=== PATIENT | female | born 1940 | race Caucasian/White ===

== ENCOUNTER 2017-03-17 14:54 | Observation (INO) | payer MEDICARE, SELFPAY ==
[2017-03-17] VITALS (7 sets, daily range): BP systolic 109–162; BP diastolic 54–92; PULSE 54–71; RESP 16–18; TEMP 36.7–36.9; O2SAT 97–100; BMI 26.6; BMI 27.6
--- NOTE | 2017-03-17 15:24 | EKG12_ITS ---
Test Reason : CP Blood Pressure : / mmHG Vent. Rate : 062 BPM Atrial Rate : 062 BPM P-R Int : 150 ms QRS Dur : 086 ms QT Int : 428 ms P-R-T Axes : 023 026 052 degrees QTc Int : 434 ms Normal sinus rhythm Normal ECG Confirmed by BAHVIN MONTAGUE, JANETTE ([id number]), editor trade journal SANTIAGO BARRIENTOS ([id number]) on 03/19/2017 2:21:44 PM Referred By: LY Confirmed By:JANETTE DELCID MD
--- NOTE | 2017-03-17 15:25 | CT_ITS ---
STUDY: CTA CHEST REASON FOR EXAM: Female, 76 years old. Chest pain RADIATION DOSAGE (If Supplied By Facility): CTDIvol = ( 8.98 ) mGy, DLP = ( 261.34 ) mGycm TECHNIQUE: The examination was performed with the intravenous administration of 75ML ml of Isovue 370 contrast material. Post-processing of the angiographic images was performed, with multiplanar reformation and 3D reconstruction. Individualized dose optimization techniques were used for this CT. COMPARISON: April 07, 2016 FINDINGS: Normal enhancement of the main pulmonary artery and right and left pulmonary arteries. Normal enhancement of the bilateral peripheral pulmonary arteries. There is no demonstrated pulmonary embolism. Atherosclerotic changes of the aorta without evidence for aneurysm. There is no demonstrated aortic dissection. Normal heart and pericardium. Normal mediastinum. Normal hilar regions. Normal visualized trachea and bronchi. The lungs are well expanded. Mild generalized interstitial thickening. There is a tiny noncalcified nodule in the right upper lobe measuring approximately 2 mm in size.. There is mild atelectasis within the dependent portion of the lungs bilaterally. Patchy airspace opacity is also seen in the left upper lobe Normal pleura. Normal chest wall structures. Dorsal spine demonstrates moderate spondylosis. Small hiatal hernia is present. Normal visualized upper abdomen. Previously noted pulmonary emboli have resolved CT/CTA Chest W/WO Contrast IMPRESSION: Mild diffuse interstitial thickening and atelectasis within the dependent portion of the lungs.. Subtle airspace opacity in the left upper lobe possibly subsegmental atelectasis No evidence for pulmonary embolus Electronically Signed: Serjio Watson MD at 17:13 EST , Service support ,
--- NOTE | 2017-03-17 15:26 | ED.VISSUMM ---
- ER Visit Summary Date of Service: 03/17/17 Chief Complaint: Chest pain History of Present Illness: The patient is a 76 F presenting with chest pain which started this morning. Pain is in the midsternal region. She states it is 5/10. She has associated shortness of breath. She states she has felt dizzy but has not had syncope. She has a history of a previous DVT/PE following hip surgery. She had an IVC filter placed which has since been removed. She is on Eliquis. She has history of hypertension, hypercholesterolemia. Physical Examination: Vitals are stable. Patient is afebrile. Alert no acute distress. HEENT exam is unremarkable. Neck is supple. Lungs are clear and equal bilaterally. Heart is regular rate and rhythm. Abdomen is soft nontender nondistended. Extremities mild symmetric pedal edema Skin is warm and dry. No focal neurologic deficit. Remainder of exam is unremarkable. Emergency Department Course and Treatment: Patient was given aspirin on arrival. EKG is sinus rhythm rate of 62 with no acute ischemic changes. CBC shows a hemoglobin 11.9, platelets 125 at her baseline. Chemistries show BUN 27. Troponin is less than 0.02. CTA chest shows no evidence of PE, atelectasis. Patient is resting comfortably in the emergency department. Due to her chest pain, discussed with Dr. Forrester for admission. Disposition: Admission Impression: Chest pain This note was generated with [employer] dictation software. It may contain incorrect words, spelling, and punctuation that were not noted in review of the chart prior to signing ED Disposition - Plan for ED Patient: Chief Complaint: Chest Pain Referrals: Radha Campbell MD [Primary Care Provider] -
[2017-03-17] MEDS: Aspirin 81 MG TAB.CHEW 324 MG PO (15:40)
[2017-03-17 16:21] LABS: Absolute Lymphocyte Count 1.12 X10^3/ul (0.83-4.51); Absolute Neutrophil Count 3.6 X10^3/uL (2.0-7.7); Basophil# 0.01 X10^3/uL; Basophil% 0.2 % (0-1); Eosinophil# 0.23 X10^3/uL; Eosinophils% 4.4 % (0-5); Hematocrit 37.9 % (37-47); Hemoglobin 11.9 g/dl (12.0-15.0); Lymphocyte # 1.12 X10^3/ul (4.0); Lymphocyte % 21.4 % (19-41); Mean Corp Hgb Conc 31.4 g/gl (32-36); Mean Corpuscular Hgb 30.7 pg (27.0-32.0); Mean Corpuscular Volume 97.7 fL (81-99); Mean Platelet Vol. 12.1 fl (6.2-12.0); Monocyte# 0.31 X10^3/uL; Monocyte% 5.9 % (0-10); Neutrophil # 3.56 X10^3/uL (2.7-7.7); Neutrophil % 68.1 % (47-70); Platelet Count 125 K/mm3 (150-450); RBC Distribution Width CV 14.9 % (11.6-14.6); RBC Distribution Width SD 52.8 fl (35.1-43.9); Red Blood Count 3.88 M/mm3 (4.2-5.4); White Blood Count 5.2 K/mm3 (4.4-11.0)
[2017-03-17 16:25] LABS: Anion Gap 8 (5-15); BUN 27 mg/dL (7-18); BUN/Creat Ratio 27.1 RATIO (10-20); Chloride 106 mmol/L (98-107); EST Glomerular Filtration Rate 57 mL/min (>60); Est Glom Filt Rate - Afr Amer 69 mL/min (>60); Estimated Creatinine Clearance 41.72 ml/min; Glucose 91 mg/dL (74-106); Potassium 4.3 mmol/L (3.5-5.1); Sodium Level 143 mmol/L (136-145)
[2017-03-17 16:36] LABS: POSITIVE COUNT NO; POSITIVE DIFFERENTIAL NO; POSITIVE MORPHOLOGY NO
--- NOTE | 2017-03-17 19:43 | ECHOD_ITS ---
Reason For Study: chest pain Procedure This was a 2D Doppler, Color Flow transthoracic echocardiogram. Exam performed in department. Left Ventricle Normal size and thickness. The estimated ejection fraction is 75 %. Stage 1 diastolic dysfunction. No regional wall motion abnormalities noted. Right Ventricle Normal size and thickness. Normal systolic function. Atria Normal left atrium. Normal right atrium. Normal atrial septum. Mitral Valve The mitral valve is structurally normal. No prolapse or stenosis seen. Tricuspid Valve Normal tricuspid valve. Trivial tricuspid valve insufficiency. Right ventricular systolic pressure estimated to be 27 mmHg. Aortic Valve Trisinus/trileaflet aortic valve. Pulmonic Valve Normal pulmonic valve. Great Vessels Normal aortic root. Normal arch. Normal inferior vena cava. Inferior vena cava collapse with sniff. Pericardium/Pleural No pericardial effusion. MMode/2D Measurements & Calculations LVIDd: 3.6 cm IVSd: 0.81 cm Ao root diam: 2.8 cm LVIDs: 2.0 cm LVPWd: 0.81 cm LA dimension: 4.6 cm RVDd: 2.8 cm FS: 42.9 % LAV(MOD-bp): 49.2 ml LA A4 area: 15.0 cm2 RA A4 area: 12.9 cm2 LAV(MOD-bp) Indexed: 27.0 ml/m2 LAV(MOD-sp2): 45.2 ml LAV(MOD-sp4): 43.8 ml Time Measurements MV dec time: 0.26 sec Doppler Measurements & Calculations MV E max brneden: 56.8 cm/sec Lat Peak E' Brenden: 6.8 cm/sec Med Peak E' Brenden: 3.9 cm/sec MV A max brenden: 82.5 cm/sec E/E' lat: 8.3 E/E' med: 14.4 MV E/A: 0.69 Ao V2 max: 123.1 cm/sec LV V1 max: 111.7 cm/sec PA V2 max: 113.7 cm/sec Ao max P.1 mmHg LV V1 max P.0 mmHg TR max brenden: 232.5 cm/sec TR max P.7 mmHg Interpretation Summary Normal size and thickness. The estimated ejection fraction is 75 %. Stage 1 diastolic dysfunction. Trivial tricuspid valve insufficiency. Right ventricular systolic pressure estimated to be 27 mmHg. Compared to echo report dated 04/08/2016, LV function has remained the same, RVSP has normalized from 63 mm hg to 27 mm Hg., Ordering Physician: Tarik Forrester Performed By: Ivette Sanchez RDCS, RVT
[2017-03-17] MEDS: 0.9% NaCl Peripheral Flush Adult/Peds IV (21:08)
[2017-03-17] MEDS: Atorvastatin Calcium 10 MG Tablet PO (21:09)
[2017-03-17] MEDS: APIXABAN 5 MG TABLET PO (21:09)
--- NOTE | 2017-03-17 22:33 | PCM.HP.STD ---
Problem List (1) Chest pain Status: Acute Qualifiers: Chest pain type: precordial pain Qualified Code(s): R07.2 - Precordial pain History of Present Illness Date of Admission: 03/17/17 Chief Complaint: Chest pain The patient is a 76 year old F who was seen in the emergency room at [facility] with chief complaint of chest pain which she describes as a heaviness which started this morning after she got up from sleep. Patient denied any radiation of the discomfort into her arms or up into her neck, she denies any nausea or diaphoresis. Patient also denied any shortness of breath. She states the chest discomfort went away after she reached the emergency room. Workup in the emergency room included an EKG showed normal sinus rhythm without evidence of ischemic changes, lab that was remarkable for a BUN of 27, and a CTA of her chest which showed areas of atelectasis but no evidence of pulmonary embolism. Physical examination was unremarkable. Patient was placed in observation status on PCU for chest pain, cardiac enzymes will be cycled, she will undergo an echocardiogram tomorrow as well as a nuclear stress test if her enzymes remain negative. 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) Chronic venous insufficiency (Chronic) Edema leg (Chronic) Leg swelling (Chronic) S/P IVC filter (Chronic) Status post total replacement of right hip (Chronic) Hypothyroidism (Chronic) Hyperlipidemia (Chronic) Hypertension (Chronic) Allergies azithromycin Allergy (Verified 06/05/16 14:18) Hives Penicillins [PCN] Allergy (Verified 06/05/16 14:18) Hives simvastatin [From Zocor] Adverse Reaction (Verified 06/05/16 14:18) leg cramps LEG CRAMPS Home Medications: Ambulatory Orders Medication Instructions Recorded Atenolol [Tenormin (beta marcelle)] 25 mg PO DAILY 01/17/16 Atorvastatin Calcium [Lipitor] 10 mg PO QHS 01/17/16 Levothyroxine [Synthroid] 37.5 tab PO SUSA 01/17/16 Levothyroxine [Synthroid] 75 mcg PO MOTUWETHFR 01/17/16 Apixaban [Eliquis] 5 mg PO BID 06/16/16 Surgical History: total hip arthroplasty - Right, - - Partial thyroidectomy. Psychiatric History: No pertinent psych hx PHYS ASST History: No pertinent PHYS ASST history Lives: Spouse/ Significant Other Smoking Status: Never smoker Tobacco Use: Non-smoker Alcohol: None Drugs: None - *Family History Maternal History Items: No pertinent history, - - The patient's father at the age of 82 with a history of cerebrovascular accident and venous disease. The patient's mother at the age of 78 with a history of myocardial infarction. Paternal History Items: No pertinent history Review of Systems Constitutional: Denies: Anorexia, Chills, Fever, Night Sweats, Malaise, Weakness, Weight Change, Fatigue Eyes: Denies: Blurred vision, Cataracts, Conjunctivae Inflammation, Double vision, Drainage HEENT: Denies: Difficulty Swallowing, Dysphasia, Ear Pain, Eye Pain, Hearing Changes, Nasal bleeding, Nasal Congestion, Post Nasal Drip Cardiovascular: Reports: Chest Pain, Heaviness. Denies: Claudication, Chest Pressure, Chest Tightness, Edema, Light Headedness, Orthopnea, Palpitations, Paroxysmal Noc. Dyspnea, Syncope Respiratory: Denies: Cough, Hemoptysis, Pleuritic Pain, Shortness of Breath, Shortness of breath at rest, Shortness of breath upon exertion, Sputum production, Wheezing Gastrointestinal: Denies: Abdominal Pain, Constipation, Diarrhea, Hematemesis, Hematochezia, Nausea, Melena, Vomiting Genitourinary: Denies: Dysuria, Frequency, Hematuria, Hesitancy, Incontinence, Nocturia, Urgency Gynecological: Denies: Breast symptoms Musculoskeletal: Denies: Back Pain, Foot Pain, Hand Pain, Joint Pain, Joint stiffness, Joint swelling, Joint Tenderness, Leg Pain Skin: Denies: Dryness, Pruritis, Rash Neurological: Denies: Blurred vision, Double vision, Slurred speech, Difficulty swallowing, Focal weakness, Headaches, Incoordination, Numbness, Tingling Psychiatric: Denies: Anxiety, Depression, Homicidal Ideations, Suicidal Ideations Endocrine: Denies: Change in Body Habitus, Heat/ Cold Intolerance, Polydipsia, Polyuria Hematologic/ Lymphatic: Denies: Adenopathy, Anemia, Easy Bruising, Easy Bleeding, Petechiae, Purpura VTE Information - Inpt Only VTE Present on Admission: No VTE Mechan Device Prophylaxis: None VTE Pharm Prophylaxis ordered?: No Reason prophylaxis not ordered:: Medical Contraindication - Patient on Eliquis Patient Problems: Active and Suspected Problems Chest pain (Acute) - Physical Exam General: Alert, Oriented x3, Cooperative, No apparent distress, Well developed, Well nourished HEENT: Atraumatic, PERRLA, EOMI, Normocephalic Oral: Moist Mucosa Neck: Supple, No JVD, Negative Carotid Bruits, No Nuchal Rigidity, Trachea Midline, Thyroid Normal Size and Texture Lungs: Clear to auscultation, Normal air movement, No rhonchi, No wheeze, No rales Cardiovascular: Regular rate, Regular Rhythm, Normal S1, Normal S2, No murmurs, No Ectopic Activity, PMI Normal, No rub noted, No Gallop Abdomen: Bowel Sounds Present, Soft, Non Tender, Non-Distended, No hernias noted Extremities: No clubbing, No cyanosis, No edema, Capillary Refill Less than 3 Seconds Skin: No rashes, No breakdown Musculoskeletal: No Tenderness to Palpation of Joints or Extremities Neurological: Cranial nerves II-XII grossly intact, Neuro grossly intact, Sensory exam intact to light touch and pain, Coordination normal Psych/Mental Status: Normal Affect, Appropriate, Alert and oriented to time, place, person, mood and affect Vital Signs Temp Pulse Resp BP Pulse Ox 98.0 F 60 16 109/54 L 97 03/17/17 19:27 03/17/17 20:15 03/17/17 19:27 03/17/17 19:27 03/17/17 19:27 Oxygen Delivery Method Room Air Weight: 75.296 kg Body Mass Index (BMI) 27.6 Laboratory Tests Past 24 Hrs 03/17/17 20:15 Troponin I < 0.02 Assessment/Plan Active and Suspected Problems Chest pain (Acute) #1 chest pain-etiology unclear-patient will be placed in observation status on PCU, enzymes will be cycled, patient will have an echocardiogram, she will undergo nuclear stress test of her enzymes remain negative. #2 past history of pulmonary embolism following right hip replacement-patient is still on Eliquis, this pulmonary embolism happened last year. #3 osteoarthritis #4 probable atelectasis on CTA #5 hypertension Code Visit OBSV E&M: 27174 Initial observation care L3
--- NOTE | 2017-03-17 22:41 | HP.PCM_ITS ---
Problem List (1) Chest pain Status: Acute Qualifiers: Chest pain type: precordial pain Qualified Code(s): R07.2 - Precordial pain History of Present Illness Date of Admission: 03/17/17 Chief Complaint: Chest pain The patient is a 76 year old F who was seen in the emergency room at [facility] with chief complaint of chest pain which she describes as a heaviness which started this morning after she got up from sleep. Patient denied any radiation of the discomfort into her arms or up into her neck, she denies any nausea or diaphoresis. Patient also denied any shortness of breath. She states the chest discomfort went away after she reached the emergency room. Workup in the emergency room included an EKG showed normal sinus rhythm without evidence of ischemic changes, lab that was remarkable for a BUN of 27, and a CTA of her chest which showed areas of atelectasis but no evidence of pulmonary embolism. Physical examination was unremarkable. Patient was placed in observation status on PCU for chest pain, cardiac enzymes will be cycled, she will undergo an echocardiogram tomorrow as well as a nuclear stress test if her enzymes remain negative. 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) Chronic venous insufficiency (Chronic) Edema leg (Chronic) Leg swelling (Chronic) S/P IVC filter (Chronic) Status post total replacement of right hip (Chronic) Hypothyroidism (Chronic) Hyperlipidemia (Chronic) Hypertension (Chronic) Allergies azithromycin Allergy (Verified 06/05/16 14:18) Hives Penicillins [PCN] Allergy (Verified 06/05/16 14:18) Hives simvastatin [From Zocor] Adverse Reaction (Verified 06/05/16 14:18) leg cramps LEG CRAMPS Home Medications: Ambulatory Orders Medication Instructions Recorded Atenolol [Tenormin (beta marcelle)] 25 mg PO DAILY 01/17/16 Atorvastatin Calcium [Lipitor] 10 mg PO QHS 01/17/16 Levothyroxine [Synthroid] 37.5 tab PO SUSA 01/17/16 Levothyroxine [Synthroid] 75 mcg PO MOTUWETHFR 01/17/16 Apixaban [Eliquis] 5 mg PO BID 06/16/16 Surgical History: total hip arthroplasty - Right, - - Partial thyroidectomy. 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 The patient's mother at the age of 78 with a history of myocardial infarction. Paternal History Items: No pertinent history Review of Systems Constitutional: Denies: Anorexia, Chills, Fever, Night Sweats, Malaise, Weakness , Weight Change, Fatigue Eyes: Denies: Blurred vision, Cataracts, Conjunctivae Inflammation, Double vision, Drainage HEENT: Denies: Difficulty Swallowing, Dysphasia, Ear Pain, Eye Pain, Hearing Changes, Nasal bleeding, Nasal Congestion, Post Nasal Drip Cardiovascular: Reports: Chest Pain, Heaviness. Denies: Claudication, Chest Pressure, Chest Tightness, Edema, Light Headedness, Orthopnea, Palpitations, Paroxysmal Noc. Dyspnea, Syncope Respiratory: Denies: Cough, Hemoptysis, Pleuritic Pain, Shortness of Breath, Shortness of breath at rest, Shortness of breath upon exertion, Sputum production, Wheezing Gastrointestinal: Denies: Abdominal Pain, Constipation, Diarrhea, Hematemesis, Hematochezia, Nausea, Melena, Vomiting Genitourinary: Denies: Dysuria, Frequency, Hematuria, Hesitancy, Incontinence, Nocturia, Urgency Gynecological: Denies: Breast symptoms Musculoskeletal: Denies: Back Pain, Foot Pain, Hand Pain, Joint Pain, Joint stiffness, Joint swelling, Joint Tenderness, Leg Pain Skin: Denies: Dryness, Pruritis, Rash Neurological: Denies: Blurred vision, Double vision, Slurred speech, Difficulty swallowing, Focal weakness, Headaches, Incoordination, Numbness, Tingling Psychiatric: Denies: Anxiety, Depression, Homicidal Ideations, Suicidal Ideations Endocrine: Denies: Change in Body Habitus, Heat/ Cold Intolerance, Polydipsia, Polyuria Hematologic/ Lymphatic: Denies: Adenopathy, Anemia, Easy Bruising, Easy Bleeding , Petechiae, Purpura VTE Information - Inpt Only VTE Present on Admission: No VTE Mechan Device Prophylaxis: None VTE Pharm Prophylaxis ordered?: No Reason prophylaxis not ordered:: Medical Contraindication - Patient on Eliquis Patient Problems: Active and Suspected Problems Chest pain (Acute) - Physical Exam General: Alert, Oriented x3, Cooperative, No apparent distress, Well developed, Well nourished HEENT: Atraumatic, PERRLA, EOMI, Normocephalic Oral: Moist Mucosa Neck: Supple, No JVD, Negative Carotid Bruits, No Nuchal Rigidity, Trachea Midline, Thyroid Normal Size and Texture Lungs: Clear to auscultation, Normal air movement, No rhonchi, No wheeze, No rales Cardiovascular: Regular rate, Regular Rhythm, Normal S1, Normal S2, No murmurs, No Ectopic Activity, PMI Normal, No rub noted, No Gallop Abdomen: Bowel Sounds Present, Soft, Non Tender, Non-Distended, No hernias noted Extremities: No clubbing, No cyanosis, No edema, Capillary Refill Less than 3 Seconds Skin: No rashes, No breakdown Musculoskeletal: No Tenderness to Palpation of Joints or Extremities Neurological: Cranial nerves II-XII grossly intact, Neuro grossly intact, Sensory exam intact to light touch and pain, Coordination normal Psych/Mental Status: Normal Affect, Appropriate, Alert and oriented to time, place, person, mood and affect Vital Signs Temp Pulse Resp BP Pulse Ox 98.0 F 60 16 109/54 L 97 03/17/17 19:27 03/17/17 20:15 03/17/17 19:27 03/17/17 19:27 03/17/17 19:27 Oxygen Delivery Method Room Air Weight: 75.296 kg Body Mass Index (BMI) 27.6 Laboratory Tests Past 24 Hrs 03/17/17 20:15 Troponin I < 0.02 Assessment/Plan Active and Suspected Problems Chest pain (Acute) #1 chest pain-etiology unclear-patient will be placed in observation status on PCU, enzymes will be cycled, patient will have an echocardiogram, she will undergo nuclear stress test of her enzymes remain negative. #2 past history of pulmonary embolism following right hip replacement-patient is still on Eliquis, this pulmonary embolism happened last year. #3 osteoarthritis #4 probable atelectasis on CTA #5 hypertension Code Visit OBSV E&M: 29041 Initial observation care L3
[2017-03-18 01:25] VITALS: O2SAT 94
[2017-03-18 01:29] VITALS: BP 106/50; PULSE 62; RESP 14; TEMP 36.6; O2SAT 94
[2017-03-18 03:00] VITALS: PULSE 61
[2017-03-18] MEDS: Levothyroxine 75 MCG Tablet PO (05:40)
[2017-03-18 05:52] LABS: Absolute Lymphocyte Count 1.14 X10^3/ul (0.83-4.51); Absolute Neutrophil Count 2.5 X10^3/uL (2.0-7.7); Basophil# 0.02 X10^3/uL; Basophil% 0.5 % (0-1); Eosinophil# 0.33 X10^3/uL; Eosinophils% 7.8 % (0-5); Hematocrit 35.1 % (37-47); Hemoglobin 11.2 g/dl (12.0-15.0); Lymphocyte # 1.14 X10^3/ul (4.0); Lymphocyte % 26.8 % (19-41); Mean Corp Hgb Conc 31.9 g/gl (32-36); Mean Corpuscular Volume 97.2 fL (81-99); Mean Platelet Vol. 11.9 fl (6.2-12.0); Monocyte# 0.31 X10^3/uL; Monocyte% 7.3 % (0-10); Neutrophil # 2.45 X10^3/uL (2.7-7.7); Neutrophil % 57.6 % (47-70); Platelet Count 124 K/mm3 (150-450); RBC Distribution Width CV 14.9 % (11.6-14.6); Red Blood Count 3.61 M/mm3 (4.2-5.4); White Blood Count 4.3 K/mm3 (4.4-11.0)
[2017-03-18 05:53] LABS: International Normalized Ratio 1.5; Partial Thromboplast Time 28.3 Seconds (24.1-36.2); Prothrombin Time (Protime)PT. 17.4 SECONDS (11.7-14.9)
[2017-03-18 05:55] VITALS: BP 116/52; PULSE 64; RESP 14; TEMP 36.7; O2SAT 94
--- NOTE | 2017-03-18 05:55 | EKG12_ITS ---
Test Reason : AM EKG Blood Pressure : / mmHG Vent. Rate : 063 BPM Atrial Rate : 063 BPM P-R Int : 158 ms QRS Dur : 086 ms QT Int : 436 ms P-R-T Axes : 064 045 061 degrees QTc Int : 446 ms Normal sinus rhythm Normal ECG Confirmed by BHAVIN MONTAGEU, JANETTE ([id number]), digital editor SANTIAGO BARRIENTOS ([id number] on 03/22/2017 1:56:59 PM Referred By: DR MOSES Confirmed By:JANETTE DELCID MD
[2017-03-18 06:02] LABS: POSITIVE COUNT NO; POSITIVE DIFFERENTIAL NO; POSITIVE MORPHOLOGY NO
[2017-03-18 06:09] LABS: Anion Gap 6 (5-15); BUN 26 mg/dL (7-18); BUN/Creat Ratio 27.9 RATIO (10-20); Calcium,Total 8.5 mg/dL (8.5-10.1); Chloride 109 mmol/L (98-107); Creatinine, Serum 0.93 mg/dL (0.55-1.02); EST Glomerular Filtration Rate 62 mL/min (>60); Est Glom Filt Rate - Afr Amer 75 mL/min (>60); Estimated Creatinine Clearance 44.86 ml/min; Glucose 86 mg/dL (74-106); Potassium 3.7 mmol/L (3.5-5.1); Sodium Level 144 mmol/L (136-145)
[2017-03-18 07:18] VITALS: PULSE 72
--- NOTE | 2017-03-18 09:49 | STRESSREP ---
Stress Test Report Date: 03/18/2017 Procedure: Pharmacologic stress nuclear imaging study Indications: Chest pain Consent: Per the patient Procedure: The patient underwent pharmacologic (Regadenoson) evaluation with a peak heart rate of 93 bpm (65% predicted maximal heart rate) with a peak blood pressure 122/70 mmHg. The baseline ECG demonstrated normal sinus rhythm. The peak pharmacologic ECG demonstrated no obvious ECG changes. There were no cardiac dysrhythmias pretest, during pharmacologic infusion, or recovery. There was no report of chest discomfort during pharmacologic infusion or recovery. The examination was discontinued secondary to completion of protocol. Impression: 1. Pharmacologic (Regadenoson) evaluation 2. Peak pharmacologic ECG with no obvious ECG changes 3. Nuclear images pending Myocardial perfusion imaging study: Technique: The patient was injected with 10.6 mCi of technetium 99m Cardiolite and subsequently rest SPECT Cardiolite nuclear imaging was obtained in the horizontal long, vertical long, and short axis views. The patient underwent pharmacologic (Regadenoson) evaluation with a peak heart rate of 93 bpm (65% predicted maximal heart rate) with a peak blood pressure 122/70 mmHg the patient was injected with 35.0 mCi of technetium 99m Cardiolite and subsequently stress SPECT Cardiolite nuclear imaging was obtained in the horizontal long, vertical long, and short axis views. A gated Cardiolite study at peak stress was obtained. Interpretation: Rest and stress SPECT Cardiolite nuclear imaging status post realignment, normalization, and attenuation correction, demonstrate the appearance of relative uniform tracer uptake and myocardial perfusion appearing within normal limits. There appears to be end systolic thickening and brightening. The gated Cardiolite study demonstrates myocardial thickening and inward wall motion. The reported LVEF is 73%. Impression: 1. Rest and stress SPECT current nuclear imaging demonstrate myocardial perfusion appearing within normal limits. 2. The gated Cardiolite study reports an LVEF of 73%. This note was generated with [employer] software. Every effort was made to ensure accuracy, however, computerized data analytics developer mistakes may persist.
--- NOTE | 2017-03-18 10:00 | STRESSREP_ITS ---
Stress Test Report Date: 03/18/2017 Procedure: Pharmacologic stress nuclear imaging study Indications: Chest pain Consent: Per the patient Procedure: The patient underwent pharmacologic (Regadenoson) evaluation with a peak heart rate of 93 bpm (65% predicted maximal heart rate) with a peak blood pressure 122 /70 mmHg. The baseline ECG demonstrated normal sinus rhythm. The peak pharmacologic ECG demonstrated no obvious ECG changes. There were no cardiac dysrhythmias pretest, during pharmacologic infusion, or recovery. There was no report of chest discomfort during pharmacologic infusion or recovery. The examination was discontinued secondary to completion of protocol. Impression: 1. Pharmacologic (Regadenoson) evaluation 2. Peak pharmacologic ECG with no obvious ECG changes 3. Nuclear images pending Myocardial perfusion imaging study: Technique: The patient was injected with 10.6 mCi of technetium 99m Cardiolite and subsequently rest SPECT Cardiolite nuclear imaging was obtained in the horizontal long, vertical long, and short axis views. The patient underwent pharmacologic (Regadenoson) evaluation with a peak heart rate of 93 bpm (65% predicted maximal heart rate) with a peak blood pressure 122/70 mmHg the patient was injected with 35.0 mCi of technetium 99m Cardiolite and subsequently stress SPECT Cardiolite nuclear imaging was obtained in the horizontal long, vertical long, and short axis views. A gated Cardiolite study at peak stress was obtained. Interpretation: Rest and stress SPECT Cardiolite nuclear imaging status post realignment, normalization, and attenuation correction, demonstrate the appearance of relative uniform tracer uptake and myocardial perfusion appearing within normal limits. There appears to be end systolic thickening and brightening. The gated Cardiolite study demonstrates myocardial thickening and inward wall motion. The reported LVEF is 73%. Impression: 1. Rest and stress SPECT current nuclear imaging demonstrate myocardial perfusion appearing within normal limits. 2. The gated Cardiolite study reports an LVEF of 73%. This note was generated with [employer] software. Every effort was made to ensure accuracy, however, computerized photo checker mistakes may persist.
[2017-03-18] MEDS: Atenolol 25 MG Tablet PO (10:05)
[2017-03-18] MEDS: APIXABAN 5 MG TABLET PO (10:05)
[2017-03-18 10:20] VITALS: BP 119/61; PULSE 63; RESP 16; TEMP 36.6; O2SAT 96
--- NOTE | 2017-03-18 10:45 | PCM.DC ---
- Discharge Diagnoses Current Active Problems: Current Active and Chronic Problems Chest pain (Acute) You will use the following diet at home:: Cardiac Your food should be the consistency of: Regular Your liquids should be the consistency of: Regular/Thin Discharge Activity: Return to Normal Activity Allergies/Adverse Reactions: Allergies azithromycin Allergy (Verified 06/05/16 14:18) Hives Penicillins [PCN] Allergy (Verified 06/05/16 14:18) Hives simvastatin [From Zocor] Adverse Reaction (Verified 06/05/16 14:18) leg cramps LEG CRAMPS Medications to take at Discharge Atenolol [Tenormin (beta marcelle)] 25 mg PO DAILY 01/17/16 Atorvastatin Calcium [Lipitor] 10 mg PO QHS 01/17/16 Levothyroxine [Synthroid] 37.5 tab PO SUSA 01/17/16 Levothyroxine [Synthroid] 75 mcg PO MOTUWETHFR 01/17/16 Apixaban [Eliquis] 5 mg PO BID 06/16/16 Primary Care Physician: Radha Campbell MD [Primary Care Provider] - Please follow up with your Primary Care Physician in: 1-2 weeks Proposed Discharge Date: 03/18/17
--- NOTE | 2017-03-18 13:29 | PCM.DC.SUM ---
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 Subtle airspace opacity in the left upper lobe possibly subsegmental atelectasis No evidence for pulmonary embolus Echocardiogram: Interpretation Summary Normal size and thickness. The estimated ejection fraction is 75 %. Stage 1 diastolic dysfunction. Trivial tricuspid valve insufficiency. Right ventricular systolic pressure estimated to be 27 mmHg. Compared to echo report dated 04/08/2016, LV function has remained the same, RVSP has normalized from 63 mm hg to 27 mm Hg., Operations: None Procedures: 2-D Echocardiogram, Stress test Summary of Care Provided: Physical exam on day of discharge: General: Resting comfortably NAD Psych: A/Ox3 normal affect HEENT: PEARRLA AT NC Neck: Supple NT CV: RRR no m/t/r/g/h Resp: CTA Abd: [id number] Soft NT no guarding or rigidity Ext: DP2+= no edema Skin: W/D normal turgor Lymph/Heme: No active bleeding or adenopathy Neuro: CN2-12 intact Hospital course: The patient is a 76 year old F who presented to the emergency room with chest discomfort described as a heaviness the morning prior to presenting to the hospital. She had a negative troponin and negative EKG and was admitted for chest pain rule out. She had a history of PE for which she had been on Eliquis. A CTA of the chest was done which did not reveal any acute PE. She was placed on telemetry, had troponin cycled, and underwent a stress test the following morning, as well as an echocardiogram. There were no acute findings. She was discharged home in stable condition, and her chest pain was felt to be musculoskeletal in origin. This patient was seen by Hari Galdamez PA-C under the supervision of Doctor Bharat. [] Discharge Diet: Low fat/ Low Cholesterol, 4000 mg Sodium Diet Discharge Activity: Return to Normal Activity Home Medications: Medications to take at Discharge Atenolol [Tenormin (beta marcelle)] 25 mg PO DAILY 01/17/16 Atorvastatin Calcium [Lipitor] 10 mg PO QHS 01/17/16 Levothyroxine [Synthroid] 37.5 tab PO SUSA 01/17/16 Levothyroxine [Synthroid] 75 mcg PO MOTUWETHFR 01/17/16 Apixaban [Eliquis] 5 mg PO BID 06/16/16 Primary Care Physician: Radha Campbell MD [Primary Care Provider] - Please follow up with your Primary Care Physician in: 1-2 weeks Disposition: Home Minutes spent on discharge:: 35 Patient Condition:: Stable Meaningful Use Info Meaningful Use Diagnoses (Choose all that apply): None applicable <Heidi Nicholson E - Last Filed: 03/18/17 14:14> Discharge Date and Diagnosis - Secondary Discharge Diagnosis Chronic Problems 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 Patient admitted because of chest pain/discomfort. Her cardiac workup was unremarkable. Her EKG was unremarkable for acute ischemic changes. Her troponin was negative ?3. she had a history of PE and she has been on Eliquis. CTA chest done and revealed no evidence of acute PE. She underwent nuclear stress test that was unremarkable for acute distress induced myocardial ischemia. Acute coronary syndrome ruled out. 2D echocardiogram showed ejection fraction of 75%, stage I diastolic dysfunction. This pain attributed to musculoskeletal pain. Patient discharged home, discharged on her chronic home medication without any changes including Eliquis, recommended follow-up with PCP in 2 weeks. - Physical Exam General: Alert, Oriented x3, Cooperative, No apparent distress. HEENT: Atraumatic, PERRLA, EOMI. Neck: Supple, No JVD, Negative Carotid Bruits, Trachea Midline, Thyroid Normal. Lungs: Clear to auscultation, Normal air movement, No rhonchi, No wheeze, No rales. Cardiovascular: Regular rate, Regular Rhythm, Normal S1, Normal S2, PMI Normal. Abdomen: Bowel Sounds Present, Soft, Non Tender, Non-Distended, No Hepato-splenomegaly. Extremities: No clubbing, No cyanosis, No edema Skin: No rashes, No breakdown Neurological: Neuro grossly intact Vital Signs are stable. . Minutes spent on discharge:: 25 Code Visit OBSV E&M: 26867 Observation care discharge
--- NOTE | 2017-03-18 13:34 | DS.PCM_ITS ---
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 Subtle airspace opacity in the left upper lobe possibly subsegmental atelectasis No evidence for pulmonary embolus Echocardiogram: Interpretation Summary Normal size and thickness. The estimated ejection fraction is 75 %. Stage 1 diastolic dysfunction. Trivial tricuspid valve insufficiency. Right ventricular systolic pressure estimated to be 27 mmHg. Compared to echo report dated 04/08/2016, LV function has remained the same, RVSP has normalized from 63 mm hg to 27 mm Hg., Operations: None Procedures: 2-D Echocardiogram, Stress test Summary of Care Provided: Physical exam on day of discharge: General: Resting comfortably NAD Psych: A/Ox3 normal affect HEENT: PEARRLA AT NC Neck: Supple NT CV: RRR no m/t/r/g/h Resp: CTA Abd: [id number] Soft NT no guarding or rigidity Ext: DP2+= no edema Skin: W/D normal turgor Lymph/Heme: No active bleeding or adenopathy Neuro: CN2-12 intact Hospital course: The patient is a 76 year old F who presented to the emergency room with chest discomfort described as a heaviness the morning prior to presenting to the hospital. She had a negative troponin and negative EKG and was admitted for chest pain rule out. She had a history of PE for which she had been on Eliquis. A CTA of the chest was done which did not reveal any acute PE. She was placed on telemetry, had troponin cycled, and underwent a stress test the following morning, as well as an echocardiogram. There were no acute findings. She was discharged home in stable condition, and her chest pain was felt to be musculoskeletal in origin. This patient was seen by Hari Galdamez PA-C under the supervision of Doctor Bharat. [] Discharge Diet: Low fat/ Low Cholesterol, 4000 mg Sodium Diet Discharge Activity: Return to Normal Activity Home Medications: Medications to take at Discharge Atenolol [Tenormin (beta marcelle)] 25 mg PO DAILY 01/17/16 Atorvastatin Calcium [Lipitor] 10 mg PO QHS 01/17/16 Levothyroxine [Synthroid] 37.5 tab PO SUSA 01/17/16 Levothyroxine [Synthroid] 75 mcg PO MOTUWETHFR 01/17/16 Apixaban [Eliquis] 5 mg PO BID 06/16/16 Primary Care Physician: Radha Campbell MD [Primary Care Provider] - Please follow up with your Primary Care Physician in: 1-2 weeks Disposition: Home Minutes spent on discharge:: 35 Patient Condition:: Stable Meaningful Use Info Meaningful Use Diagnoses (Choose all that apply): None applicable <Heidi Nicholson E - Last Filed: 03/18/17 14:14> Discharge Date and Diagnosis - Secondary Discharge Diagnosis Chronic Problems 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 Patient admitted because of chest pain/ discomfort. Her cardiac workup was unremarkable. Her EKG was unremarkable for acute ischemic changes. Her troponin was negative ?3. she had a history of PE and she has been on Eliquis. CTA chest done and revealed no evidence of acute PE. She underwent nuclear stress test that was unremarkable for acute distress induced myocardial ischemia. Acute coronary syndrome ruled out. 2D echocardiogram showed ejection fraction of 75%, stage I diastolic dysfunction. This pain attributed to musculoskeletal pain. Patient discharged home, discharged on her chronic home medication without any changes including Eliquis , recommended follow-up with PCP in 2 weeks. - Physical Exam General: Alert, Oriented x3, Cooperative, No apparent distress. HEENT: Atraumatic, PERRLA, EOMI. Neck: Supple, No JVD, Negative Carotid Bruits, Trachea Midline, Thyroid Normal. Lungs: Clear to auscultation, Normal air movement, No rhonchi, No wheeze, No rales. Cardiovascular: Regular rate, Regular Rhythm, Normal S1, Normal S2, PMI Normal. Abdomen: Bowel Sounds Present, Soft, Non Tender, Non-Distended, No Hepato- splenomegaly. Extremities: No clubbing, No cyanosis, No edema Skin: No rashes, No breakdown Neurological: Neuro grossly intact Vital Signs are stable. . Minutes spent on discharge:: 25 Code Visit OBSV E&M: 56916 Observation care discharge
== END 2017-03-18 10:46 | disposition home or self-care (01) ==
LOC: ED 17:07 → PCU 18:44
PROVIDERS: Admitting Provider Internal Medicine; Emergency Provider Emergency Medicine; Family Provider Internal Medicine; PCP Internal Medicine; Visit Provider Hospitalist
DX: R07.2 Precordial pain (principal); R06.02 Shortness of breath; R42 Dizziness and giddiness; I10 Essential (primary) hypertension; E03.9 Hypothyroidism, unspecified; E78.5 Hyperlipidemia, unspecified; M19.90 Unspecified osteoarthritis, unspecified site; I83.12 Varicose veins of left lower extremity with inflammation; I83.11 Varicose veins of right lower extremity with inflammation; Z79.899 Other long term (current) drug therapy; Z79.01 Long term (current) use of anticoagulants; Z86.711 Personal history of pulmonary embolism
CPT/HCPCS: 36415; 71275; 78452; 80048; 84484; 85025; 85610; 85730; 93005; 93017; 93306; 99218; 99284; A9500; Q9967; A4216; G0378; J2785

== ENCOUNTER → 2019-07-28 | Outpatient (CLI) | payer MEDICARE, SELFPAY ==
[2017-03-17 19:13] VITALS: BMI 27.6
--- NOTE | 2019-07-28 15:49 | VDLE_ITS ---
Reason For Study: Pain LLE RIGHT LEFT CFV is compressible, spontaneous, phasic, GSV is normal. competent and demonstrates normal CFV is compressible, spontaneous, phasic, augmentation. competent, and demonstrates normal Procedure augmentation. Exam performed in department. FV is compressible, spontaneous, phasic, A preliminary report was called and/or faxed competent and demonstrates normal to [place]. augmentation. POP V is compressible, spontaneous, phasic, competent and demonstrates normal augmentation. T/P Trunk is compressible. PTV is compressible. LT PerV is compressible. Interpretation Summary Deep veins of the left lower extremity are patent and compressible segmentally. There is no evidence of left lower extremity deep vein thrombosis. Valvular competence appears intact within the proximal deep venous system on the left . The left great saphenous vein appears patent and compressible segmentally. Ordering Physician: Antonio Justin Referring Physician: Radha Campbell Performed By: Angeles Villatoro RVT
== END | disposition home or self-care (01) ==
LOC: CVS 15:46
PROVIDERS: PCP Internal Medicine; Referring Provider Physician Assistant Surgical; Visit Provider Physician Assistant Surgical
DX: M79.662 Pain in left lower leg (principal)
CPT/HCPCS: 93971

== ENCOUNTER 2020-03-01 09:15 | Outpatient (RCR) | payer MEDICARE, SELFPAY ==
[2017-03-17 19:13] VITALS: BMI 27.6
== END 2020-03-01 23:59 ==
LOC: IMMUN 09:15
PROVIDERS: PCP Internal Medicine; Visit Provider Family Medicine
DX: Z23 Encounter for immunization (principal)
CPT/HCPCS: 0011A; 0012A

== ENCOUNTER → 2020-08-26 15:46 | Outpatient (CLI) | payer MEDICARE, SELFPAY ==
[2020-08-26 14:55] VITALS: BMI 25.0
[2020-08-26 16:59] LABS: Absolute Lymphocyte Count 1.02 X10^3/uL (0.83-4.51); Absolute Neutrophil Count 3.5 X10^3/uL (2.0-7.7); Basophil# 0.03 X10^3/uL; Basophil% 0.6 % (0-1); Eosinophil# 0.16 X10^3/uL; Hematocrit 32.5 % (37-47); Hemoglobin 9.4 g/dL (12.0-15.0); Lymphocyte # 1.02 X10^3/ul (0.83-4.51); Lymphocyte % 19.4 % (19-41); Mean Corp Hgb Conc 28.9 g/dL (32-36); Mean Corpuscular Hgb 25.9 pg (27.0-32.0); Mean Corpuscular Volume 89.5 fL (81-99); Mean Platelet Vol. 10.3 fl (6.2-12.0); Monocyte# 0.59 X10^3/uL; Monocyte% 11.2 % (0-10); NRBC Flagged by Analyzer 0 % (0-5); Neutrophil # 3.45 X10^3/uL (2.7-7.7); Neutrophil % 65.6 % (47-70); Platelet Count 334 K/mm3 (150-450); RBC Distribution Width CV 17.2 % (11.6-14.6); RBC Distribution Width SD 56.5 fl (35.1-43.9); Red Blood Count 3.63 M/mm3 (4.2-5.4); White Blood Count 5.3 K/mm3 (4.4-11.0)
[2020-08-26 17:20] LABS: ALB/GLOB Ratio 0.6 RATIO (0.9-2.4); AST(SGOT) 12 U/L (15-37); Alanine Aminotransfer ALT/SGPT 15 U/L (13-56); Albumin, Serum 2.8 g/dL (3.2-5.0); Alkaline Phosphatase 119 U/L (45-117); Anion Gap 5 (5-15); BUN 26 mg/dL (7-18); Calcium,Total 8.9 mg/dL (8.5-10.1); Chloride 102 mmol/L (98-107); Cholesterol 108 mg/dL (200); Creatinine, Serum 0.79 mg/dL (0.55-1.02); EST Glomerular Filtration Rate 74 mL/min (>60); Est Glom Filt Rate - Afr Amer 90 mL/min (>60); Globulin 4.6 g/dL (2.2-4.2); Glucose 85 mg/dL (74-106); High Density Lipoprotein 47 mg/dL; Potassium 4.2 mmol/L (3.5-5.1); Protein, Total 7.4 g/dL (6.4-8.2); Sodium Level 139 mmol/L (136-145); Thyroid Stim Hormone (TSH) 1.76 uIU/mL (0.358-3.74); Triglycerides 75 mg/dL; Very Low Density Lipoprotein 15 mg/dL (5-40)
== END ==
PROVIDERS: PCP Internal Medicine; Visit Provider Internal Medicine
DX: D64.9 Anemia, unspecified (principal); I10 Essential (primary) hypertension; E78.5 Hyperlipidemia, unspecified
CPT/HCPCS: 36415; 80053; 80061; 84443; 85025

== ENCOUNTER → 2020-08-30 10:42 | Outpatient (CLI) | payer MEDICARE, SELFPAY ==
[2020-08-26 14:55] VITALS: BMI 25.0
--- NOTE | 2020-08-30 10:44 | RAD_ITS ---
STUDY: X-RAY - LEFT KNEE REASON FOR EXAM: Female, 80 years old. Left knee pain. TECHNIQUE: 4 view(s) of the knee. COMPARISON: None. FINDINGS: Osteopenia. Normal visualized distal femur. Normal visualized proximal tibia and fibula. Normal proximal tibiofibular articulation. Moderate arthrosis of the medial, lateral and patellofemoral compartments with osteophyte formation. Lateral tilt and subluxation of the patella sunrise view. The soft tissue structures are unremarkable. RAD/Knee 4 or More Views IMPRESSION: Osteopenia with tricompartmental arthrosis with osteophyte formation. No acute abnormality, erosive changes or periostitis. Electronically Signed: Zhang Ritchie MD at 12:04 EDT , Service support ,
--- NOTE | 2020-08-30 10:50 | RAD_ITS ---
STUDY: X-RAY - LEFT SHOULDER REASON FOR EXAM: Female, 80 years old. Left shoulder pain. TECHNIQUE: 4 view(s) of the shoulder. COMPARISON: None. FINDINGS: Generalized osteopenia. Moderate arthrosis of the glenohumeral joint with osteophyte formation. Mild arthrosis of the AC joint. Normal acromioclavicular joint. Normal acromion. Osteopenia of the humeral head with sclerosis at the greater tuberosity. The soft tissue structures are unremarkable. Normal visualized pulmonary apex. RAD/Shoulder min 2 Views IMPRESSION: Osteopenia with moderate arthrosis of the glenohumeral joint and mild arthrosis of the AC joint. Osteopenia and sclerotic changes of the humeral head. No acute abnormality, erosive changes or periostitis. Electronically Signed: Zhang Ritchie MD at 12:03 EDT , Service support ,
== END ==
PROVIDERS: PCP Internal Medicine; Referring Provider Internal Medicine; Visit Provider Internal Medicine
DX: M25.512 Pain in left shoulder (principal); M25.562 Pain in left knee
CPT/HCPCS: 73030; 73564

== ENCOUNTER 2020-10-17 08:03 | Outpatient (RCR) | payer MEDICARE, SELFPAY | END 2020-10-17 08:04 | disposition home or self-care (01) | LOC: PT 08:03 | PROVIDERS: PCP Internal Medicine; Visit Provider Orthopaedic Surgery | DX: R69 Illness, unspecified (principal) ==

== ENCOUNTER → 2020-10-28 15:39 | Outpatient (CLI) | payer MEDICARE, SELFPAY ==
[2020-10-28 16:41] LABS: Absolute Lymphocyte Count 1.11 X10^3/uL (0.83-4.51); Absolute Neutrophil Count 3.2 X10^3/uL (2.0-7.7); Basophil# 0.02 X10^3/uL; Basophil% 0.4 % (0-1); Eosinophil# 0.24 X10^3/uL; Eosinophils% 4.7 % (0-5); Hematocrit 32.6 % (37-47); Hemoglobin 9.5 g/dL (12.0-15.0); Lymphocyte # 1.11 X10^3/ul (0.83-4.51); Lymphocyte % 21.6 % (19-41); Mean Corp Hgb Conc 29.1 g/dL (32-36); Mean Corpuscular Hgb 27.4 pg (27.0-32.0); Mean Corpuscular Volume 93.9 fL (81-99); Mean Platelet Vol. 10.4 fl (6.2-12.0); Monocyte# 0.57 X10^3/uL; Monocyte% 11.1 % (0-10); NRBC Flagged by Analyzer 0 % (0-5); Neutrophil # 3.18 X10^3/uL (2.7-7.7); Platelet Count 254 K/mm3 (150-450); RBC Distribution Width CV 18.7 % (11.6-14.6); RBC Distribution Width SD 64.1 fl (35.1-43.9); Red Blood Count 3.47 M/mm3 (4.2-5.4); White Blood Count 5.1 K/mm3 (4.4-11.0)
[2020-10-28 17:03] LABS: Ferritin 694 ng/mL (8-252); Iron 23 ug/dL (50-170); Iron Binding Capacity,Total 173 ug/dL (250-450)
== END ==
PROVIDERS: PCP Internal Medicine; Referring Provider Internal Medicine; Visit Provider Internal Medicine
DX: I10 Essential (primary) hypertension (principal); D64.9 Anemia, unspecified
CPT/HCPCS: 36415; 82728; 83540; 83550; 85025

== ENCOUNTER 2020-11-25 10:30 | Outpatient (RCR) | payer MEDICARE, SELFPAY ==
[2020-08-26 14:55] VITALS: BMI 25.0
[2020-09-05 12:44] VITALS: BMI 25.0
--- NOTE | 2020-09-11 10:33 | HP.PTEVAL ---
Patient's Visit Information TRACE KHAN is a 80 year old F referred to Physical Therapy by Dr. Jennifer Louise MD with a diagnosis of L knee and shoulder OA. Date of Evaluation: 09/11/20 Physical Therapist: Frankie Hernandez PT, ATC - Visit Plan Frequency: 2x /Week Duration: 3 Weeks Plan: L shoulder: rotator cuff strengthening, scap stab ex's, UBE, and HEP. L knee: Nustep, strengthening, balance and proprio, sit to stands, and HEP - Subjective Pt reports her L knee has been sore for a couple of years. Pt reports she rolled over in bed and experienced a severe pain and her knee has never gotten better. Pt reports she was going to go to an ortho doc just before the pandemic, but she decided to stay home due to the risk of illness. Pt reports she does have a referral to Dr. Wilhelm in a couple weeks, but would like some PT to see if we can help to decrease her pain. Pt reports her L knee feels like its grinding often. No locking up/popping/or giving out. No tingling or numbness in L leg. Pt reports L knee occasionally wakes her up secondary to pain. Pt has no stairs at home. Pt reports she has avoided all community activities such as going to [employer] at this time secondary to L knee pain. Pt notes she has had L shoulder pain since getting her covid vaccines. Pt reports she has been using tylenol and bengay for her pain which has helped, but not eliminated the pain. No tingling or numbness in L UE. Pt also reports sleep difficulty secondary to L shoulder pain. Pt is R hand dominant. Pt has had xrays of the L knee and shoulder which both reveal OA. 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 L knee pain 3/10 at rest, 8/10 at worst. L shoulder pain is 0/10 at rest, 10/10 at worst - Pain L shoulder Pain Intensity (Out of 10): 0 Pain Intensity Range: 10 L knee Pain Intensity (Out of 10): 3 Pain Intensity Range: 8 - Objective Neuro: B UE and LE sensation are WNL to light touch. Palpation: Significant crepitus with AROM of the L shoulder and knee. ROM LE: R knee 0-120, L knee 0-15-85. ROM UE: R shoulder flex= 80, abd= 80, ER= 10; L shoulder flex= 50, abd= 50, ER= 10. MMT: L UE and LE are grossly 3-/5 and painful with all testing. - Goals Goal 1:: I with HEP in 4 visits Goal Time Frame: 2-4 Weeks - Rehabilitation Potential Physical Therapy Diagnosis: L shoulder and knee pain, weakness, and limited ROM secondary to degenerative changes Rehabilitation Potential: Good - Anticipated Interventions Patient/Client Instruction: Educate patient on: Condition, Plan of Care For the Purpose of:: To improve self management Therapeutic Exercise to Include: Strength training, Endurance training, Balance training, Active ROM, Scapular Strength/Stabilization For the Purpose of:: To decrease pain, To increase ROM, To improve muscle performance and motor function Thank you for the opportunity to evaluate your patient. For Medicare and Medicare HMO plans, please review the plan of care and approve it. It will need to be FAXED BACK to us at [phone] for Medicare purposes. For Medicare only, by signing this I certify the plan of care. Please let me know if there are questions or concerns regarding this plan of care. Physician Signature: Date:
--- NOTE | 2020-10-16 11:00 | HP.PTREVAL ---
Dr. Jennifer Louise MD, It has been my pleasure to treat TRACE KHAN over the last 5 visits for L knee and shoulder OA. Please see the progress note below for an update on the physical therapy plan of care! Subjective: Pt reports no pain at this time Objective/Function: Pt reports no pain in L shoulder or knee at this time. Strength in L shoulder and leg remain the same (3-/5 and painful with testing). Pt is able to ambulate 340 feet until needing to stop becasue L knee began to hurt. Pt still has significant difficulty with ascending out of chair Plan Plan: Cont with POC focusing on L shoulder and leg strengthening. Balance/Gait/Functional tests - Balance/Special Test Scores Lower Extremity Functional Score: 28 Goals Goal 1:: I with HEP in 4 visits Goal Time Frame: 2-4 Weeks Goal 2:: Increase L shoulder and L knee strength x 1 grade to aid with transfers sit to stand Goal Time Frame: 4-6 Weeks Goal 3:: Decrease L shoulder and knee pain x 50% to aid with sleep Goal Time Frame: 4-6 Weeks Goal 4:: Pt will be able to ambulate with WW and SBA 600' to aid with community ambulation Goal Time Frame: 4-6 Weeks Anticipated Interventions Patient/Client Instruction: Educate patient on: Condition, Plan of Care For the Purpose of:: To improve self management Therapeutic Exercise to Include: Strength training, Endurance training, Balance training, Active ROM, Scapular Strength/Stabilization For the Purpose of:: To decrease pain, To increase ROM, To improve muscle performance and motor function Please do not hesitate to contact me at [phone] by phone or if you have questions or concerns regarding this new plan of care! Sincerely, Frankie Hernandez, PT, ATC
--- NOTE | 2020-10-18 10:10 | HP.PTEVAL2 ---
Patient's Visit Information TRACE KHAN is a 80 year old F referred to Physical Therapy by Dr. Jennifer Louise MD with a diagnosis of L plantarfacitis. Date of Evaluation: 10/18/20 Physical Therapist: Frankie Hernandez PT, ATC - Visit Plan Frequency: 2-3x /Week Duration: 4-6 Weeks Plan: L foot stretching, DTR, US, stick rollout, and HEP - Subjective Subjective: Pt reports her L foot has been sore for over 1 1/2 years. Pt notes she did have this pain years ago which eventually resolved. Pt notes she had been wearing sandals in the past secondary to swelling in her feet and believes this may have caused her pain. Pt reports no treatment for this pain up til now. Pt reports she has had recent xrays, and was told it is just arthritis. Pt denies tingling or numbness in L foot. Pt reports occasional sleep difficulty secondary to L foot pain. Pt reports she wears orthotics which she purchased from her [employer]. Pt reports her pain is minimal, but notes her pain increases with prolonged standing and ambulation. Pt reports her pain is rated at 1-2/10, and remains at that level most of the time. - Pain L heel/foot Intensity: 1 Pain Intensity Range: 2 - Objective Objective: Neuro: B LE sensation is WNL to light touch. MMT: B ankles are grossly 4/5 throughout. ROM: B ankle DF= 3 degrees, PF= 50 degrees. Palpation: Pt is sore on the Heel of L foot. No obvious deformity - Goals Goal 1:: Decrease L foot pain x 50% to aid with sleep Goal Time Frame: 4-6 Weeks Goal 2:: Increase L ankle DF x 10 degrees to aid with decreasing pain Goal Time Frame: 4-6 Weeks Goal 3:: I with HEP Goal Time Frame: 4-6 Weeks - Rehabilitation Potential Physical Therapy Diagnosis: Pt has L heel pain and limited DF ROM secondary to L foot plantarfascitis Rehabilitation Potential: Good - Anticipated Interventions Patient/Client Instruction: Educate patient on: Condition, Plan of Care For the Purpose of:: To improve self management Therapeutic Exercise to Include: Flexibilty training, Passive ROM, Active ROM For the Purpose of:: To decrease pain, To increase ROM Manual Therapy Techniques to Include: Soft tissue mobilization For the Purpose of:: To decrease pain, To increase ROM Ultrasound (thermal/non thermal): Yes For the Purpose of:: To decrease pain Thank you for the opportunity to evaluate your patient. For Medicare and Medicare HMO plans, please review the plan of care and approve it. It will need to be FAXED BACK to us at [phone] for Medicare purposes. For Medicare only, by signing this I certify the plan of care. Please let me know if there are questions or concerns regarding this plan of care. Physician Signature: Date:
--- NOTE | 2020-11-25 11:37 | HP.PTDCSUM ---
It has been my pleasure to treat TRACE KHAN referred by Dr. Jennifer Louise MD, with the diagnosis of L knee and shoulder OA for a total of 12 visit(s). Discharge Date: Please see the following information for a summary of their discharge status. Subjective: I am still in pain today, but I am ready to continue on my own L shoulder Pain Intensity (Out of 10): 0 L knee Pain Intensity (Out of 10): 4 % Improvement: 50 Objective/Function: L shoulder pain is 0/10, L knee pain 4/10. L shoulder and L knee are grossly 4-/5 with MMT. Pt is able to ambulate 680 with WW without any difficulty. Pt is I with HEP Goal 1:: I with HEP in 4 visits Goal Progress: Goal Met Goal 2:: Increase L shoulder and L knee strength x 1 grade to aid with transfers sit to stand Goal Progress: Progressing Goal 3:: Decrease L shoulder and knee pain x 50% to aid with sleep Goal Progress: Goal Met Goal 4:: Pt will be able to ambulate with WW and SBA 600' to aid with community ambulation Goal Progress: Goal Met Plan: Discharge to HEP If there are questions or concerns regarding this patient's physical therapy, please feel free to call me at [phone]. Thank you for the referral of this patient. Sincerely, Frankie Hernandez, PT, ATC Balance/Gait/Functional tests - Balance/Special Test Scores Lower Extremity Functional Score: 39
--- NOTE | 2020-11-25 11:57 | HP.PTDCS(2) ---
It has been my pleasure to treat TRACE KHAN referred by Dr. Jennifer Louise MD, with the diagnosis of L plantarfacitis for a total of 8 visit(s). Discharge Date: Please see the following information for a summary of their discharge status. Subjective: I only have some slight soreness today. It mostly just feels stiff % Improvement: 10 Objective/Function/Assessment: L foot pain 02/17. L foot DF 15 degrees. Pt is I with HEP. Rx goals achieved Patient Goals: Improve Mobility, Improve Function, Decrease Pain, Walk Normal, Sleep Normal Goal 1:: Decrease L foot pain x 50% to aid with sleep Goal Progress: Goal Met Goal 2:: Increase L ankle DF x 10 degrees to aid with decreasing pain Goal Progress: Goal Met Goal 3:: I with HEP Goal Progress: Goal Met Plan: Discharge to HEP If there are questions or concerns regarding this patient's physical therapy, please feel free to call me at [phone]. Thank you for the referral of this patient. Sincerely, Frankie Hernandez, PT, ATC
== END 2020-11-25 19:00 | disposition home or self-care (01) ==
LOC: PT 10:30
PROVIDERS: PCP Internal Medicine; Referring Provider Internal Medicine; Visit Provider Internal Medicine
DX: M25.562 Pain in left knee (principal); M25.512 Pain in left shoulder
CPT/HCPCS: 97035; 97110; 97140; 97161; 97164

== ENCOUNTER → 2020-12-30 11:21 | Outpatient (CLI) | payer MEDICARE, SELFPAY ==
[2020-12-30 15:08] LABS: Absolute Lymphocyte Count 0.87 X10^3/uL (0.83-4.51); Absolute Neutrophil Count 3.9 X10^3/uL (2.0-7.7); Basophil# 0.02 X10^3/uL; Basophil% 0.3 % (0-1); Eosinophil# 0.43 X10^3/uL; Eosinophils% 7.1 % (0-5); Hemoglobin 9.1 g/dL (12.0-15.0); Lymphocyte # 0.87 X10^3/ul (0.83-4.51); Lymphocyte % 14.4 % (19-41); Mean Corp Hgb Conc 29.4 g/dL (32-36); Mean Corpuscular Hgb 27.4 pg (27.0-32.0); Mean Corpuscular Volume 93.4 fL (81-99); Mean Platelet Vol. 10.5 fl (6.2-12.0); Monocyte# 0.75 X10^3/uL; Monocyte% 12.4 % (0-10); NRBC Flagged by Analyzer 0 % (0-5); Neutrophil # 3.94 X10^3/uL (2.7-7.7); Neutrophil % 65.5 % (47-70); Platelet Count 312 K/mm3 (150-450); RBC Distribution Width CV 17.9 % (11.6-14.6); RBC Distribution Width SD 61.4 fl (35.1-43.9); Red Blood Count 3.32 M/mm3 (4.2-5.4)
[2020-12-30 15:25] LABS: Ferritin 628 ng/mL (8-252); Iron 21 ug/dL (50-170); Iron Binding Capacity,Total 206 ug/dL (250-450)
[2020-12-30 15:26] LABS: Vitamin B12 656 pg/mL (211-911)
[2020-12-30 15:29] LABS: Vitamin D,25 Hydroxy 111.2 ng/mL
== END ==
PROVIDERS: PCP Internal Medicine; Referring Provider Physician Assistant; Visit Provider Physician Assistant
DX: D62 Acute posthemorrhagic anemia (principal); E53.8 Deficiency of other specified B group vitamins; E56.9 Vitamin deficiency, unspecified; I10 Essential (primary) hypertension; E55.9 Vitamin D deficiency, unspecified; M85.80 Other specified disorders of bone density and structure, unspecified site
CPT/HCPCS: 36415; 82306; 82607; 82728; 83540; 83550; 85025

== ENCOUNTER 2021-02-28 09:07 | Outpatient (CLI) | payer MEDICARE, SELFPAY ==
[2021-02-28] VITALS (9 sets, daily range): BP systolic 118–145; BP diastolic 58–77; PULSE 57–75; RESP 12–20; TEMP 36.9; O2SAT 99–100; BMI 23.6
--- NOTE | 2021-02-28 | IMM_PTH ---
PATIENT: TRACE KHAN LOC: CT U#:[id number] AGE/SX: 80/F ROOM: RE02/28/[address]: Dr. Jason Ho MD : 1940 BED: DIS: 02/28/2021 SPEC #: [id number] RECD: 03/03/21 12:36 STATUS: MARYCRUZ REQ #: [id number] CARYN: 02/28/21 00:[address]: Jason Ho DEPT: IMMUNOHISTOCHEMISTRY RECD BY: Elisa Erazo ENTERED: 03/03/21 12:38 SP TYPE: IMMUNO OTHR DR: Dr. Jennifer Louise MD Tissues: A - Bone marrow of iliac crest B - Bone marrow of iliac crest Procedures: CD138 (initial) KAPPA (add) LAMBDA (add) PHYSICIAN & INSTITUTION [place] [address] SPECIMEN INFORMATION: Tissue Source: A ? Bone marrow core, B ? Bone marrow clot Clinical Info: Anemia, high ferritin, low retic count Specimen Number: [id number] A & B CPT code: 36888 x2, 55938 x4 METHODOLOGY: Deparaffinized sections of prefer/formalin-fixed tissue or PAP/DQ stained slides are incubated with monoclonal/polyclonal antibodies/oligonucleotide probes. Localization is made via biotin free immunoperoxidase method. Appropriate controls are performed and reacted as expected. Results on target cell population are indicated in the following table: RESULTS: ANTIBODY / CLONE RESULT Block A CD138 (B-A38) positive [place] (polyclonal) negative Lambda (polyclonal) positive Block B CD138 (B-A38) positive [place] (polyclonal) negative Lambda (polyclonal) positive These tests were developed and their performance characteristics determined by [facility]. They may not have been cleared or approved by the U.S. Food and Drug Administration. The FDA has determined that such clearance or approval is not necessary. The above immunohistochemical/dualISH markers are ordered and reviewed by the Pathologist. INTERPRETATION: A. Bone marrow core: Mild plasmacytosis with lambda monoclonality. B. Bone marrow clot: Mild plasmacytosis with lambda monoclonality. SJ:raina 03/04/2021 Case has been reviewed in consultation with Dr. Zuleta who concurs with the above diagnosis. IDC:JOSE
--- NOTE | 2021-02-28 | BMB_PTH ---
PATIENT: TRACE KHAN LOC: [place] U#:[id number] AGE/SX: 80/F ROOM: RE02/28/[address]: Dr. Jason Ho MD : 1940 BED: DIS: 02/28/2021 SPEC #: [id number] RECD: 02/28/21 11:14 STATUS: MARYCRUZ MARIA #: [id number] CARYN: 02/28/21 00:[address]: Jason Ho DEPT: BONE MARROW RECD BY: Glenys Harrison ENTERED: 02/28/21 11:14 SP TYPE: BMB ALBA DR: Dr. Jennifer Louise MD Tissues: A - Bone marrow, NOS B - Bone marrow, NOS C - Bone marrow, NOS Procedures: Decalcification bone/plaque Bone Marrow Aspiration Bone Marrow Core Biopsy Iron Stain Bone Marrow HEADER OPERATION: Bone marrow biopsy and aspiration, right PRE-OP DIAGNOSIS: Anemia, high ferritin, low retic count TISSUE SUBMITTED: A - Core, B - Clot, C - Smears, and send outs (flow, cytogenetics and FISH MDS) BONE MARROW DIAGNOSIS Right hip bone marrow core, clot and aspirate smears: Normocellular marrow with mild plasmacytosis with lambda monoclonality, consistent with monoclonal gammopathy of undetermined sigmificance. Trilineage hematopoiesis. See comment. SJ:raina 03/04/2021 COMMENT Iron stain show 3+ iron. Atypical or ring sideroblasts are not seen. Flow cytometry study from [facility] shows the findings are consistent with a plasma cell neoplasm. There is no evidence of a lymphoproliferative disorder. Cytogentic studies are pending at this time. FISH studies could not be performed due to a delay in [employer] transit. Immunohistochemistry ([id number]) supports the above diagnosis. Correlation with clinical, laboratory findings and appropriate follow up are necessary. Case has been reviewed in consultation with Dr. Zuleta who concurs with the above diagnosis. IDC:AM BONE MARROW STUDY Slides are reviewed. CBC DATE: 02/28/21 WBC 6.9; RBC 3.5; HGB 9.8; HCT 33.0; MCV 93.8; RDW 17.2; PLTS 556313 SEGS 70.6%; LYMPHS 12.1%; MONOS 10.4%; EOS 6.2%; BASOS 0.4% PERIPHERAL SMEAR: Submitted. RBC: Normocytic anemia. WBC: Unremarkable. The WBC count is compatible to as reported above. PLTS: Adequate. BONE MARROW ASPIRATE DIFFERENTIAL: 200 cell count. Blasts % (normal 0-2): 0 Promyelocytes % (normal 1-5): 0 Myelocytes and metamyelocytes % (normal 17-41): 22 Bands and Segs % (normal 15-32): 40 Eos % (normal 1-6): 7 Basos % (normal 0-1): 0 Monocytes % (normal 0-4): 0 Erythroid Precursors % (normal 17-35): 20 Lymphocytes % (normal 7-13): 8 Plasma Cells % (normal 0-2): 3 ASPIRATE FINDINGS: Site: Right Spicular, Cellular M/E ratio: 3.5 (Normal 1.5-4.0) Megakaryocytes: Present and normal morphology. Erythropoiesis: Normoblastic. Granulopoiesis: Progressive and unremarkable. Comment: Mild increase of plasma cells are noted. Plasma cells appear mature. Mild increase of eosinophils are also noted. Significant dysplastic changes are not seen. CORE BIOPSY FINDINGS: Site: Right Adequacy: Limited Cellularity: 50% M/E ratio: Within normal limits. Megakaryocytes: Present and adequate in number. Bony trabeculae: Unremarkable. Granulomas: Absent. Lymphoid aggregate: Absent. Atypical infiltrate: Mild increase of plasma cells are noted. Comment: Immunohistochemistry ([id number]) who mild plasmacytosis with lambda monoclonality, consistent with monoclonal gammopathy of undetermined significance. Plasma cells comprise about 5% of total nucleated cell population. ASPIRATE CLOT FINDINGS: Site: Right Marrow particles: Numerous Cellularity: 40% M/E ratio: Within normal limits. Megakaryocytes: Present and adequate in number. Granulomas: Absent. Lymphoid aggregates: Absent. Atypical infiltrate: Mild increase of plasma cells are noted. Comment: Immunohistochemistry ([id number]) who mild plasmacytosis with lambda monoclonality, consistent with monoclonal gammopathy of undetermined significance. Plasma cells comprise about 5% of total nucleated cell population. SPECIAL STAINS WITH MATCHED CONTROLS: Iron: 3+, atypical or ring sideroblasts are not seen. Reticulin: No significant increase of reticulin fibers is noted. PAS: Highlights myeloid cells and megakaryocytes. BONE MARROW GROSS A - Received is a container labeled with the patient's name and designated bone marrow. The specimen consists of multiple fragments of blood clot mixed with fragments of bone measuring 1.5 x 0.3 x 0.1 cm. The specimen is totally submitted in one cassette after decalcification. B - Received labeled with the patient's name and designated bone marrow is a specimen that consists of approximately 5 ml of bloody fluid that on filtration yields multiple minute fragments of blood clots measuring in aggregate 3 x 2.5 x 0.2 cm. The specimen is totally submitted in one cassette. C - Also received are 18 unstained and 1 peripheral stained slides. The unstained slides are submitted for appropriate staining. Also received are two green top tubes which are sent to our reference lab for flow, cytogenetics and FISH MDS. SJ:rg 02/28/2021 TC:5 CPT: 13837, 52851, 37125 x2, 85381 x3, 59305 ADDENDUM ADDENDUM ADDENDUM ADDENDUM ADDENDUM ADDENDUM ADDENDUM 03/24/2021 11:31 ADDENDUM 03/24/2021 11:31 ADDENDUM 03/24/2021 11:31 ADDENDUM 03/24/2021 11:31 ADDENDUM 03/24/2021 11:31 CYTOGENETICS REPORT FROM [employer] INTERPRETATION: A normal female karyotype was observed in twenty metaphases analyzed. Karyotype: 46,XX[21] Please see complete report in e-chart or EMR for further details
--- NOTE | 2021-02-28 09:21 | CT_ITS ---
PROCEDURE: CT GUIDED BONE marrow biopsy of the posterior right iliac bone. DATE: 02/28/2021. INDICATION: Female, 80 years old. Anemia. Possible multiple myeloma. PHYSICIAN: Xavier Bella M.D. RADIATION DOSAGE (If Supplied By Facility): CTDIvol = ( 11.2 ) mGy, DLP = ( 318.14 ) mGycm. In the visualized os optimization techniques were utilized. PROCEDURE: The risks, benefits, and alternatives to the procedure were explained to the patient. The specific risk of hemorrhage requiring further treatment or intervention was detailed and accepted. Follow-up instructions were discussed with the patient as well. Written informed consent was obtained. The patient was brought into the CT suite and placed in the prone position. . An appropriate entry site was identified overlying the posterior right iliac bone. The overlying skin was prepped and draped in the usual sterile fashion. 1% lidocaine was administered subcutaneously for local anesthesia. Conscious sedation was performed. The patient received 1 mg of VERSED and 25 mcg of FENTANYL intravenously. Conscious sedation was started at 10:20 AM and terminated at 10:36 AM. The patient was independently monitored by the department nurse. Under CT guidance, a bone marrow biopsy as well as bone marrow aspirates were performed utilizing an 11-gauge bone marrow biopsy kit. The specimens were then placed in the appropriate fluid and transported to the laboratory for analysis. Hemostasis was obtained. The patient tolerated the procedure well without immediate complications. CT/Biopsy/Inj or Needle Placement IMPRESSION: Successful CT guided bone marrow biopsy and bone marrow aspirates of the posterior right iliac bone, as described above. Conscious sedation protocol was followed. Electronically Signed: Xavier Bella MD at 11:28 EST , Service support ,
[2021-02-28 09:22] LABS: Absolute Lymphocyte Count 0.84 X10^3/uL (0.83-4.51); Absolute Neutrophil Count 4.9 X10^3/uL (2.0-7.7); Basophil# 0.03 X10^3/uL; Basophil% 0.4 % (0-1); Eosinophil# 0.43 X10^3/uL; Eosinophils% 6.2 % (0-5); Hemoglobin 9.8 g/dL (12.0-15.0); Lymphocyte # 0.84 X10^3/ul (0.83-4.51); Lymphocyte % 12.1 % (19-41); Mean Corp Hgb Conc 29.7 g/dL (32-36); Mean Corpuscular Hgb 27.8 pg (27.0-32.0); Mean Corpuscular Volume 93.8 fL (81-99); Mean Platelet Vol. 9.7 fl (6.2-12.0); Monocyte# 0.72 X10^3/uL; Monocyte% 10.4 % (0-10); NRBC Flagged by Analyzer 0 % (0-5); Neutrophil # 4.89 X10^3/uL (2.7-7.7); Neutrophil % 70.6 % (47-70); Platelet Count 265 K/mm3 (150-450); RBC Distribution Width CV 17.2 % (11.6-14.6); RBC Distribution Width SD 59.3 fl (35.1-43.9); Red Blood Count 3.52 M/mm3 (4.2-5.4); White Blood Count 6.9 K/mm3 (4.4-11.0)
[2021-02-28 09:36] LABS: International Normalized Ratio 1.1; Prothrombin Time (Protime)PT. 13.9 SECONDS (11.7-14.9)
[2021-02-28 09:38] LABS: Partial Thromboplast Time 29.5 Seconds (24.1-36.2)
[2021-02-28] MEDS: fentaNYL 100 MCG/2 ML Ampul IV (10:20)
[2021-02-28] MEDS: Midazolam 2 MG/2 ML Syringe IV (10:20)
[2021-02-28] MEDS: Lidocaine 2% (20 ml mdv) 20 ML Vial INFILT (10:28)
== END 2021-02-28 23:59 | disposition home or self-care (01) ==
LOC: CT 09:08
PROVIDERS: PCP Internal Medicine; Referring Provider Internal Medicine Medical Oncology; Visit Provider Internal Medicine Medical Oncology
DX: D47.2 Monoclonal gammopathy (principal); D72.822 Plasmacytosis; D50.9 Iron deficiency anemia, unspecified; R19.5 Other fecal abnormalities; I10 Essential (primary) hypertension; E78.5 Hyperlipidemia, unspecified; E03.9 Hypothyroidism, unspecified; M19.90 Unspecified osteoarthritis, unspecified site; Z79.899 Other long term (current) drug therapy
CPT/HCPCS: 38222; 36415; 77012; 85025; 85610; 85730; 88305; 88311; 88313; 88341; 88342; 99156; J7040; A4216

== ENCOUNTER 2021-05-08 07:52 | Day surgery (SDC) | payer MEDICARE, SELFPAY ==
[2021-05-08] MEDS: Lactated Ringers 1,000 ML 15 ML IV (08:00)
[2021-05-08 08:21] VITALS: BP 132/68; PULSE 64; RESP 18; TEMP 36.2; O2SAT 99; BMI 22.0
--- NOTE | 2021-05-08 08:56 | PCM.HP.BLA ---
History and Physical Date of Admission: 05/08/21 TRACE KHAN, is a 80 F who presents to the office today for evaluation of anemia. Her anemia started back in 2017 after she underwent a hip replacement. She developed fracture after she had a hip replacement. This resulted in DVT and PE. She had a Anchor filter placed and was on Coumadin therapy. She was able to be transitioned off her Coumadin therapy to aspirin therapy. Her aspirin therapy was stopped and she was going to be anemic. She was referred to hematology. She underwent an evaluation and was discovered to have a monoclonal. 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 She was referred by architectural engineering teacher Dr. Ho for evaluation of her persistent anemia. She has been on PO iron for 2-3 years with persistently low iron levels with increased ferritin. Stool occult positive 1.5.22. Bone marrow Biopsy: Normocellular marrow with mild plasmacytosis with lambda monoclonality, consistent with monoclonal gammopathy of undetermined significance. Trilineage hematopoiesis. Plasma cells 3%. Reports that she has loose BM following PO intake and she does find it interrupts normal activities. Has known bleeding hemorrhoids. ROS Const Constitutional: No anorexia, fatigue, fever(s), weight change or sleep problems Eyes Eyes: No change in vision ENT ENT: No abnormal hearing, difficulty swallowing, mouth lesions, tongue swelling or throat swelling Resp Respiratory: No cough or shortness of breath Cardio Cardiology: No chest pain at rest, chest pain with exertion, shortness of breath or dyspnea on exertion Gastro GI: No difficulty swallowing Genitourinary-Female: No difficulty urinating or burning urination Musc Musculoskeletal: No joint pain, joint swelling, muscle weakness or decreased muscle mass Skin Skin: No hair loss in leg, yellowing of the eye, itchy eyes, rash, skin ulcer or skin swelling Neuro Neurology: No abnormal hearing, abnormal movements, confusion, unsteady gait/balance or memory loss Psych Psychiatric: No anxiety, No confusion and No memory loss Endo Endocrine: No fatigue or weight change Aller/Imm Allergy/Immunologic: No itchy eyes, throat swelling or tongue swelling Alok/Lymp Hematologic/Lymphatic: No easy bleeding, easy bruising or enlarged lymph nodes Exam Const General: cooperative and comfortable Nutritional Appearance: average body habitus and well nourished [facility] Head: normal to inspection Ears: hearing grossly normal bilaterally Nose: external nose normal Face and sinus: normal facial exam Mouth: oral mucosae normal Throat: posterior oropharynx normal Eyes General: appearance normal, both eyes and all related structures Neck Neck: normal visual inspection Chest Chest palpation & inspection: normal inspection of the chest and normal palpation of entire chest wall Resp Effort & Inspection: normal respiratory effort Auscultation: Bilateral: Clear to Auscultation Cardio Palpation: normal PMI Rate: regular rate Rhythm: regular rhythm GI Inspection: normal to inspection Auscultation: normal bowel sounds Percussion: normal to percussion Palpation: no hepatosplenomegaly Skin General: no rashes or lesions noted Neuro General: patient alert Extrem General: normal to inspection Psych Affect: normal affect Quality Reporting Tobacco Screening ([facility]) Smoking Status: Never smoker Assessment and Plan Assessment and Plan (1) Anemia: Status: Chronic Qualifiers: Anemia type: iron deficiency Iron deficiency anemia type: unspecified iron deficiency Qualified Code(s): D50.9 - Iron deficiency anemia, unspecified Comment: Iron level 21 on 12/30/2020, Ferritin is high. Iron deficiency anemia. Plan - Dr. Ortiz Friend, DO: She will undergo endoscopy and colonoscopy to evaluate her upper and lower GI tract. Nothing is fine then she will undergo a capsule study to evaluate her small intestines. Her and her daughter were explained the risk and benefits including bleeding, infection, sepsis, perforation, need for emergent . She will have an ASA of 3. I have re-examined the patient. There are no clinical changes since date of exam.
--- NOTE | 2021-05-08 09:00 | COLBX_PTH ---
PATIENT: TRACE KHAN LOC: [place] U#:[id number] AGE/SX: 81/F ROOM: RE05/08/[address]: Dr. Angel Carlos DO : 1940 BED: DIS: 05/08/2021 SPEC #: [id number] RECD: 05/08/21 16:15 STATUS: MARYCRUZ RENicola #: [id number] CARYN: 05/08/21 09:[address]: Angel Carlos DEPT: SURGICAL PATHOLOGY RECD BY: Yovany Urias ENTERED: 05/09/21 09:08 SP TYPE: COLON BX ALBA DR: Dr. Jennifer Louise MD Tissues: A - Duodenum, NOS B - Sigmoid colon biopsy C - Transverse colon D - Ileum, NOS E - COLON BIOPSY F - Rectum, NOS Procedures: Surgery Specimen Level IV HEADER OPERATION: Colonoscopy, EGD, biopsies ([facility]) PRE-OP DIAGNOSIS: Anemia TISSUE SUBMITTED: A ? Duodenum biopsy, B ? Sigmoid polyp, C ? Transverse colon polyp, D ? terminal ileum biopsy, E ? Random colon biopsy, F ? Rectum biopsy MICROSCOPIC DIAGNOSIS A. Duodenum, biopsy: No significant pathologic change. No evidence of duodenitis. See comment. B. Sigmoid colon polyp, biopsy: Fragments of tubular adenoma. C. Transverse colon polyp, biopsy: Tubular adenoma. D. Terminal ileum, biopsy: Mild acute enteritis. See comment. E. Colon, random biopsy: Acute colitis. See comment. F. Rectum, biopsy: Acute colitis. See comment. AM:raina 05/12/2021 COMMENT A. Focal pigmented macrophages are seen in the mucosa. Clinical correlation is suggested. D. Mild glandular distortion is present. There is cryptitis and crypt abscesses present. Fissuring ulcers are not seen and transmural lymphoid aggregates are not identified. Clinical correlation is suggested. E. Sections show glandular distortion. There is cryptitis, crypt abscesses and expansion of lamina propria by chronic inflammatory infiltrates. Distinct transmural lymphoid aggregates are not identified and no fissuring ulcers are seen. Clinical correlation is suggested. F. Sections show mild glandular distortion with cryptitis and crypt abscesses. Fissuring ulcers and/or transmural lymphoid aggregates are not identified. Clinical correlation is suggested. MICROSCOPIC DESCRIPTION Slides are reviewed. GROSS DESCRIPTION A - Received in fixative is one container labeled with the patient's name and designated duodenum biopsy. The specimen consists of multiple irregular fragments of light soft tissue that in aggregate measure 1 x 0.5 x 0.1 cm. The specimen is totally submitted in one cassette. B - Received in fixative is one container labeled with the patient's name and designated sigmoid polyp. The specimen consists of multiple irregular fragments of light soft tissue that in aggregate measure 1.5 x 1 x 0.3 cm. The specimen is totally submitted in one cassette. C - Received in fixative is one container labeled with the patient's name and designated transverse colon polyp. The specimen consists of one irregular fragment of light soft tissue that measures 0.5 x 0.5 x 0.3 cm. The specimen is totally submitted in one cassette. D - Received in fixative is one container labeled with the patient's name and designated terminal ileum biopsy. The specimen consists of multiple irregular fragments of light soft tissue that in aggregate measure 1.5 x 0.3 x 0.1 cm. The specimen is totally submitted in one cassette. E - Received in fixative is one container labeled with the patient's name and designated random colon biopsy. The specimen consists of multiple irregular fragments of light soft tissue that in aggregate measure 2 x 0.3 x 0.1 cm. The specimen is totally submitted in one cassette. F - Received in fixative is one container labeled with the patient's name and designated rectum biopsy. The specimen consists of one irregular fragment of light soft tissue that measures 0.3 x 0.3 x 0.1 cm. The specimen is totally submitted in one cassette. / SJ:rg 05/09/2021 TC:2 CPT: 26679 x6
[2021-05-08 10:00] VITALS: BP 115/57; BP 132/68; PULSE 69; RESP 16; TEMP 36.2; O2SAT 100
--- NOTE | 2021-05-08 10:00 | OP.EGD_ITS ---
Patient Name: Deborah Fitch Procedure Date: 05/08/2021 8:55 AM Date of : 1940 Age: 81 Procedure: Upper GI endoscopy Indications: Iron deficiency anemia Providers: Angel Carlos DO Medicines: See the Anesthesia note for documentation of the administered medications Patient Profile: This is an 81 year old female. Refer to note in patient chart for documentation of history and physical. Patient has symptoms. Complications: No immediate complications. Procedure: Pre-Anesthesia Assessment: - Prior to the procedure, a History and Physical was performed, and patient medications and allergies were reviewed. The patient is competent. The risks and benefits of the procedure and the sedation options and risks were discussed with the patient. All questions were answered and informed consent was obtained. Patient identification and proposed procedure were verified by the physician in the pre-procedure area. Mental Status Examination: alert and oriented. Airway Examination: normal oropharyngeal airway and neck mobility. Respiratory Examination: clear to auscultation. CV Examination: normal. Prophylactic Antibiotics: The patient does not require prophylactic antibiotics. Prior Anticoagulants: The patient has taken no previous anticoagulant or antiplatelet agents. ASA Grade Assessment: II - A patient with mild systemic disease. After reviewing the risks and benefits, the patient was deemed in satisfactory condition to undergo the procedure. The anesthesia plan was to use moderate sedation / analgesia (conscious sedation). Immediately prior to administration of medications, the patient was re-assessed for adequacy to receive sedatives. The heart rate, respiratory rate, oxygen saturations, blood pressure, adequacy of pulmonary ventilation, and response to care were monitored throughout the procedure. The physical status of the patient was re-assessed after the procedure. After obtaining informed consent, the endoscope was passed under direct vision. Throughout the procedure, the patient's blood pressure, pulse, and oxygen saturations were monitored continuously. The Colonoscope was introduced through the mouth, and advanced to the third part of duodenum. The upper GI endoscopy was accomplished without difficulty. The patient tolerated the procedure well. Moderate Sedation: Moderate (conscious) sedation was administered by the endoscopy nurse and supervised by the endoscopist. The patient's oxygen saturation, heart rate, blood pressure and response to care were monitored. Total physician intraservice time was 15 minutes. Scope In: 9:06:02 AM Scope Out: 9:22:02 AM Total Procedure Duration Time 0 hours 16 minutes 0 seconds Findings: A mild Schatzki ring was found in the lower third of the esophagus. A guidewire was placed and the scope was withdrawn. Dilation was performed with a Savary dilator with no resistance at 33 Fr. The dilation site was examined and showed moderate improvement in luminal narrowing. Estimated blood loss was minimal. A medium-sized hiatal hernia was present. Patchy inflammation characterized by friability was found in the first portion of the duodenum. Biopsies were taken with a cold forceps for histology. Verification of patient identification for the specimen was done. Estimated blood loss was minimal. A non-bleeding diverticulum with a small opening and no stigmata of recent bleeding was found at the cricopharyngeus. Impression: - Mild Schatzki ring. Dilated. - Medium-sized hiatal hernia. - Duodenitis. Biopsied. 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 Recommendation: - Discharge patient to home. - Resume previous diet. - Continue present medications. - Await pathology results. Procedure Code(s): --- Professional --- 05298, Esophagogastroduodenoscopy, flexible, transoral; with insertion of guide wire followed by passage of dilator(s) through esophagus over guide wire 62942, 59, Esophagogastroduodenoscopy, flexible, transoral; with biopsy, single or multiple 68442, 59, Moderate sedation services provided by the same physician or other qualified health social worker palliative care performing the diagnostic or therapeutic service that the sedation supports, requiring the presence of an independent trained observer to assist in the monitoring of the patient's level of consciousness and physiological status; initial 15 minutes of intraservice time, patient age 5 years or older CPT copyright 2017 [employer]. All rights reserved. The codes documented in this report are preliminary and upon sales service rep review may be revised to meet current compliance requirements. Angel Carlos DO 05/08/2021 9:59:35 AM This report has been signed electronically. Number of Addenda: 1 Note Initiated On: 05/08/2021 8:55 AM Addendum Number: 1 Addendum Date: 11/05/2021 6:13:44 AM MAC was used as sedation for this procedure. Angel Carlos DO 11/05/2021 6:13:48 AM This report has been signed electronically.
--- NOTE | 2021-05-08 10:01 | OP.CCLET_ITS ---
11/05/2021 Jennifer Louise MD [address] [place] [address] [place] [address] Re : Upper GI endoscopy procedure for Deborah Fitch Dear Dr. Louise This procedure was performed on April. My impressions and recommendations are as follows: Impressions : - Mild Schatzki ring. Dilated. - Medium-sized hiatal hernia. - Duodenitis. Biopsied. 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 Recommendations : - Discharge patient to home. - Resume previous diet. - Continue present medications. - Await pathology results. My findings are described in the full procedure note, which is enclosed. If I can be of further assistance, please feel free to contact me at . Sincerely, Angel Friend, 05/08/2021 9:59:35 AM This report has been signed electronically.
[2021-05-08 10:05] VITALS: BP 123/65; BP 132/68; PULSE 64; RESP 16; O2SAT 100
[2021-05-08 10:10] VITALS: BP 128/67; BP 132/68; PULSE 68; RESP 16; O2SAT 100
--- NOTE | 2021-05-08 10:11 | OP.CCLET_ITS ---
11/05/2021 Jennifer Louise MD [address] [place] [address] [place] [address] Re : Colonoscopy procedure for Deborah Fitch Dear Dr. Louise This procedure was performed on April. My impressions and recommendations are as follows: Impressions : - Hemorrhoids found on perianal exam. - Two 1 to 2 mm polyps in the sigmoid colon and in the transverse colon, removed with a hot snare. Resected and retrieved. - Mucosal ulceration. Biopsied. - Congested mucosa in the terminal ileum. Biopsied. - Moderate diverticulosis in the sigmoid colon and in the descending colon. There was no evidence of diverticular bleeding. Recommendations : - Repeat colonoscopy in 1 year for surveillance based on pathology results. - Continue present medications. My findings are described in the full procedure note, which is enclosed. If I can be of further assistance, please feel free to contact me at . Sincerely, Angel Carlos, 05/08/2021 10:10:07 AM This report has been signed electronically.
--- NOTE | 2021-05-08 10:11 | OP.COLON_ITS ---
Patient Name: Deborah Fitch Procedure Date: 05/08/2021 9:22 AM Date of : 1940 Age: 81 Procedure: Colonoscopy Indications: Iron deficiency anemia Providers: Anegl Carlos DO Medicines: See the Anesthesia note for documentation of the administered medications Patient Profile: This is an 81 year old female. Refer to note in patient chart for documentation of history and physical. Patient has symptoms. Last Colonoscopy: more than 10 years ago. Complications: No immediate complications. Procedure: Pre-Anesthesia Assessment: - Prior to the procedure, a History and Physical was performed, and patient medications and allergies were reviewed. The patient is competent. The risks and benefits of the procedure and the sedation options and risks were discussed with the patient. All questions were answered and informed consent was obtained. Patient identification and proposed procedure were verified by the physician in the pre-procedure area. Mental Status Examination: alert and oriented. Airway Examination: normal oropharyngeal airway and neck mobility. Respiratory Examination: clear to auscultation. CV Examination: normal. Prophylactic Antibiotics: The patient does not require prophylactic antibiotics. Prior Anticoagulants: The patient has taken no previous anticoagulant or antiplatelet agents. ASA Grade Assessment: II - A patient with mild systemic disease. After reviewing the risks and benefits, the patient was deemed in satisfactory condition to undergo the procedure. The anesthesia plan was to use moderate sedation / analgesia (conscious sedation). Immediately prior to administration of medications, the patient was re-assessed for adequacy to receive sedatives. The heart rate, respiratory rate, oxygen saturations, blood pressure, adequacy of pulmonary ventilation, and response to care were monitored throughout the procedure. The physical status of the patient was re-assessed after the procedure. After I obtained informed consent, the scope was passed under direct vision. Throughout the procedure, the patient's blood pressure, pulse, and oxygen saturations were monitored continuously. The Colonoscope was introduced through the anus and advanced to the terminal ileum. The colonoscopy was performed without difficulty. The patient tolerated the procedure well. The quality of the bowel preparation was good. Moderate Sedation: Moderate (conscious) sedation was administered by the endoscopy nurse and supervised by the endoscopist. The following parameters were monitored: oxygen saturation, heart rate, blood pressure, and response to care. Total physician intraservice time was 15 minutes. Scope In: 9:24:59 AM Scope Out: 9:53:46 AM Total Procedure Duration Time 0 hours 28 minutes 47 seconds Findings: Hemorrhoids were found on perianal exam. Two sessile polyps were found in the sigmoid colon and transverse colon. The polyps were 1 to 2 mm in size. These polyps were removed with a hot snare. Resection and retrieval were complete. Verification of patient identification for the specimen was done. Estimated blood loss was minimal. Discontinuous areas of nonbleeding ulcerated mucosa with no stigmata of recent bleeding were present in the rectum and throughout the colon. Biopsies were taken with a cold forceps for histology. Verification of patient identification for the specimen was done. Estimated blood loss was minimal. A localized area of the terminal ileum was congested. Biopsies were taken with a cold forceps for histology. Verification of patient identification for the specimen was done. Estimated blood loss was minimal. A few small and large-mouthed diverticula were found in the sigmoid colon and descending colon. There was no evidence of diverticular bleeding. Impression: - Hemorrhoids found on perianal exam. - Two 1 to 2 mm polyps in the sigmoid colon and in the transverse colon, removed with a hot snare. Resected and retrieved. - Mucosal ulceration. Biopsied. - Congested mucosa in the terminal ileum. Biopsied. - Moderate diverticulosis in the sigmoid colon and in the descending colon. There was no evidence of diverticular bleeding. Recommendation: - Repeat colonoscopy in 1 year for surveillance based on pathology results. - Continue present medications. Procedure Code(s): --- Professional --- 12417, Colonoscopy, flexible; with removal of tumor(s), polyp(s), or other lesion(s) by snare technique 26341, 59, Colonoscopy, flexible; with biopsy, single or multiple 61796, 59, Moderate sedation services provided by the same physician or other qualified health client care representative performing the diagnostic or therapeutic service that the sedation supports, requiring the presence of an independent trained observer to assist in the monitoring of the patient's level of consciousness and physiological status; initial 15 minutes of intraservice time, patient age 5 years or older CPT copyright 2017 [employer]. All rights reserved. The codes documented in this report are preliminary and upon state pilot review may be revised to meet current compliance requirements. Angel Carlos DO 05/08/2021 10:10:07 AM This report has been signed electronically. Number of Addenda: 1 Note Initiated On: 05/08/2021 9:22 AM Addendum Number: 1 Addendum Date: 11/05/2021 6:13:59 AM MAC was used as sedation for this procedure. Angel Carlos DO 11/05/2021 6:14:05 AM This report has been signed electronically.
[2021-05-08 10:15] VITALS: BP 130/67; BP 132/68; PULSE 63; RESP 16; TEMP 36.2; O2SAT 100
[2021-05-08 10:45] VITALS: BP 132/68
--- NOTE | 2021-05-08 12:00 | SUR.PHASEII ---
1045, dtr called out and states that her mother is in a lot of pain. Assessed patient, her pain is in her right hip. she states it always gets painful and she normally takes pain meds but did not take any this morning. told her that i would try to get a hold of dr Breanna to get some tylenol for her.
== END 2021-05-08 23:59 | disposition home or self-care (01) ==
LOC: EN 07:53 → AC 07:53
PROVIDERS: PCP Internal Medicine; Referring Provider Internal Medicine; Visit Provider Internal Medicine Gastroenterology
PROC: 0DJD8ZZ Inspection of Lower Intestinal Tract, Via Natural or Artificial Opening Endoscopic (ICD-10-PCS; CPT 45378; principal; 2021-05-08 08:55)
DX: D50.9 Iron deficiency anemia, unspecified (principal); K64.9 Unspecified hemorrhoids; R79.89 Other specified abnormal findings of blood chemistry; K63.5 Polyp of colon; K29.80 Duodenitis without bleeding; K57.30 Diverticulosis of large intestine without perforation or abscess without bleeding; K44.9 Diaphragmatic hernia without obstruction or gangrene; K63.89 Other specified diseases of intestine; D12.3 Benign neoplasm of transverse colon; D12.5 Benign neoplasm of sigmoid colon; K52.9 Noninfective gastroenteritis and colitis, unspecified; K22.2 Esophageal obstruction; M19.90 Unspecified osteoarthritis, unspecified site; E78.5 Hyperlipidemia, unspecified; E03.9 Hypothyroidism, unspecified; I10 Essential (primary) hypertension; D47.2 Monoclonal gammopathy; Z86.718 Personal history of other venous thrombosis and embolism; Z79.01 Long term (current) use of anticoagulants; Z79.899 Other long term (current) drug therapy; Z86.711 Personal history of pulmonary embolism
CPT/HCPCS: 45385; 45380; 43248; 43239; 88305; J7120; J2405

== ENCOUNTER 2021-05-22 15:00 | Outpatient (CLI) | payer MEDICARE, SELFPAY ==
[2021-05-22 15:52] LABS: LDH 187 U/L (84-246)
[2021-05-22 15:55] LABS: Erythrocyte Sedimentation Rate 75 mm/hr (0-30)
[2021-05-24 15:11] LABS: Anti-Centromere B Ab <0.2 AI (0.0-0.9); Anti-Chromatin <0.2 AI (0.0-0.9); Anti-Jo <0.2 AI (0.0-0.9); Anti-Scleroderma-70 AB <0.2 AI (0.0-0.9); RNP Ab 0.2 AI (0.0-0.9); SJOGREN'S Anti-SS-A test < 0.2 AI (0.0-0.9); SJOGREN'S Anti-SS-B test < 0.2 AI (0.0-0.9); Smith Ab <0.2 AI (0.0-0.9)
[2021-05-25 16:20] LABS: Anti-dsDNA Ab <1 IU/mL (0-9)
[2021-05-30 22:07] LABS: Albumin 3.3 g/dL (2.9-4.4); Alpha-1-Globulins 0.4 g/dL (0.0-0.4); Alpha-2-Globulins 0.8 g/dL (0.4-1.0); Cytoplasmic Ab (C-ANCA) <1:20 titer (Neg:<1:20); Endomysial Antibody IgA Negative (Negative); Gamma Globulin 1.5 g/dL (0.4-1.8); Immunoglobulin A 95 mg/dL (64-422); Immunoglobulin E 4 IU/mL (6-495); Immunoglobulin G 1615 mg/dL (586-1602); Immunoglobulin M 41 mg/dL (26-217); PROEL- TOTAL PROTEIN 6.8 g/dL (6.0-8.5)
[2021-05-30 23:00] LABS: Perinuclear Ab (P-ANCA) <1:20 titer (Neg:<1:20); t-Transglutaminase IgA <2 U/mL (0-3)
== END 2021-05-22 23:59 | disposition home or self-care (01) ==
LOC: LAB 15:01
PROVIDERS: PCP Internal Medicine; Referring Provider Internal Medicine Gastroenterology; Visit Provider Internal Medicine Gastroenterology
DX: R19.7 Diarrhea, unspecified (principal); D50.9 Iron deficiency anemia, unspecified
CPT/HCPCS: 36415; 82784; 82785; 83516; 83615; 84165; 85652; 86140; 86225; 86235; 86255; 86256; 86334

== ENCOUNTER → 2021-06-04 | Outpatient (CLI) | payer MEDICARE, SELFPAY | END | disposition home or self-care (01) | LOC: LABSPEC 09:47 | PROVIDERS: PCP Internal Medicine; Referring Provider Internal Medicine Gastroenterology; Visit Provider Internal Medicine Gastroenterology | DX: Z00.00 Encounter for general adult medical examination without abnormal findings (principal) ==

== ENCOUNTER → 2022-04-08 | Outpatient (CLI) | payer MEDICARE, SELFPAY ==
[2022-04-08 12:25] LABS: Absolute Lymphocyte Count 0.66 X10^3/uL (0.83-4.51); Basophil# 0.01 X10^3/uL; Basophil% 0.2 % (0-1); Eosinophil# 0.15 X10^3/uL; Eosinophils% 3.5 % (0-5); Hematocrit 37.3 % (37-47); Hemoglobin 11.5 g/dL (12.0-15.0); Lymphocyte # 0.66 X10^3/ul (0.83-4.51); Lymphocyte % 15.6 % (19-41); Mean Corp Hgb Conc 30.8 g/dL (32-36); Mean Corpuscular Hgb 33.2 pg (27.0-32.0); Mean Corpuscular Volume 107.8 fL (81-99); Mean Platelet Vol. 11.4 fl (6.2-12.0); Monocyte# 0.43 X10^3/uL; Monocyte% 10.2 % (0-10); NRBC Flagged by Analyzer 0 % (0-5); Neutrophil # 2.97 X10^3/uL (2.7-7.7); Neutrophil % 70.3 % (47-70); Platelet Count 170 K/mm3 (150-450); RBC Distribution Width CV 14.4 % (11.6-14.6); RBC Distribution Width SD 57.1 fl (35.1-43.9); Red Blood Count 3.46 M/mm3 (4.2-5.4); White Blood Count 4.2 K/mm3 (4.4-11.0)
[2022-04-08 12:33] LABS: Erythrocyte Sedimentation Rate 29 mm/hr (0-30)
[2022-04-08 12:42] LABS: Vitamin B12 439 pg/mL (211-911)
[2022-04-08 12:44] LABS: ALB/GLOB Ratio 0.9 RATIO (0.9-2.4); AST(SGOT) 22 U/L (15-37); Alanine Aminotransfer ALT/SGPT 26 U/L (13-56); Albumin, Serum 3.4 g/dL (3.2-5.0); Alkaline Phosphatase 125 U/L (45-117); Anion Gap 8 (5-15); BUN 33 mg/dL (7-18); BUN/Creat Ratio 42.3 RATIO (10-20); Calcium,Total 9.1 mg/dL (8.5-10.1); Chloride 104 mmol/L (98-107); Creatinine, Serum 0.78 mg/dL (0.55-1.02); EST Glomerular Filtration Rate 75 mL/min (>60); Est Glom Filt Rate - Afr Amer 91 mL/min (>60); Ferritin 1058 ng/mL (8-252); Globulin 3.9 g/dL (2.2-4.2); Glucose 103 mg/dL (74-106); Iron 45 ug/dL (50-170); Iron Binding Capacity,Total 233 ug/dL (250-450); LDH 173 U/L (84-246); PERCENT IRON SATURATION 19.3 % (15.0-55.0); Protein, Total 7.3 g/dL (6.4-8.2); Sodium Level 138 mmol/L (136-145)
[2022-04-08 13:30] LABS: Cholesterol 150 mg/dL (200); High Density Lipoprotein 70 mg/dL; Thyroid Stim Hormone (TSH) 3.93 uIU/mL (0.358-3.74); Triglycerides 46 mg/dL; Very Low Density Lipoprotein 9 mg/dL (5-40)
[2022-04-08 19:03] LABS: Xtra Tube EP Lab EXTRA TUBE
[2022-04-09 17:07] LABS: Albumin 3.6 g/dL (2.9-4.4); Alpha-1-Globulins 0.3 g/dL (0.0-0.4); Alpha-2-Globulins 0.7 g/dL (0.4-1.0); Free Kappa Light Chains 13.1 mg/L (3.3-19.4); Free Lambda Light Chains 39.4 mg/L (5.7-26.3); Gamma Globulin 1.3 g/dL (0.4-1.8); Immunoglobulin A 64 mg/dL (64-422); Immunoglobulin G 1425 mg/dL (586-1602); PROEL- TOTAL PROTEIN 6.6 g/dL (6.0-8.5)
[2022-04-09 18:55] LABS: Immunoglobulin M 24 mg/dL (26-217)
== END | disposition home or self-care (01) ==
LOC: BIMLAB 10:14
PROVIDERS: Internal Medicine Medical Oncology; PCP Internal Medicine; Referring Provider Internal Medicine; Visit Provider Internal Medicine
DX: I10 Essential (primary) hypertension (principal); D50.8 Other iron deficiency anemias; D47.2 Monoclonal gammopathy; D62 Acute posthemorrhagic anemia; E03.9 Hypothyroidism, unspecified
CPT/HCPCS: 36415; 80053; 80061; 82607; 82728; 82784; 83540; 83550; 83615; 83883; 84165; 84443; 85025; 85652; 86334

== ENCOUNTER 2022-04-29 05:19 | Day surgery (SDC) | payer MEDICARE, SELFPAY ==
[2022-04-29] VITALS (7 sets, daily range): BP systolic 102–121; BP diastolic 57–68; PULSE 62–69; RESP 16–18; TEMP 36.1–36.9; O2SAT 96–99; BMI 21.2
[2022-04-29] MEDS: Lactated Ringers 1,000 ML 15 ML IV (05:55)
--- NOTE | 2022-04-29 06:30 | COLBX_PTH ---
PATIENT: TRACE KHAN LOC: EN U#:[id number] AGE/SX: 82/F ROOM: RE04/29/[address]: Dr. Angel Carlos DO : 1940 BED: DIS: 04/29/2022 SPEC #: [id number] RECD: 04/29/22 13:42 STATUS: MARYCRUZ RENicola #: [id number] CARYN: 04/29/22 06:[address]: Angel Carlos DEPT: SURGICAL PATHOLOGY RECD BY: Yovany Urias ENTERED: 04/29/22 13:42 SP TYPE: COLON BX ALBA DR: Dr. Jennifer Louise MD Tissues: A - Sigmoid colon biopsy B - Descending colon C - Cecum, NOS D - COLON BIOPSY Procedures: Surgery Specimen Level IV HEADER OPERATION: Colonoscopy (MAC) PRE-OP DIAGNOSIS: Ulcerative colitis TISSUE SUBMITTED: A ? Polyp sigmoid colon, B ? Descending colon polyp, C ? Cecum biopsy, D ? Random colonic biopsies MICROSCOPIC DIAGNOSIS A. Polyp sigmoid colon, biopsy: Tubular adenoma. B. Descending colon polyp, biopsy: Fragments of tubular adenoma. C. Cecum, biopsy: Mild chronic active colitis. See microscopic description and comment. D. Colon, random biopsy: Mild chronic active colitis. See microscopic description and comment. SJ:raina 04/30/2022 COMMENT C & D. Correlation with clinical, endoscopic findings and appropriate follow up are necessary. Please make reference to previous specimen ([id number]) terminal ileum, biopsy with diagnosis of ?mild acute enteritis? and colon, random biopsy with diagnosis of ?acute colitis? and rectum, biopsy with diagnosis of ?acute colitis.? MICROSCOPIC DESCRIPTION Slides are reviewed. C & D. Both specimens show similar morphologic features. The specimen shows fragments of colonic mucosa with acute and chronic inflammatory cell infiltrates in the lamina propria, minimal glandular distortion and cryptitis. Crypt abscesses or granulomas are not seen. No evidence of dysplasia. GROSS DESCRIPTION A - Received in fixative is one container labeled with the patient's name and designated polyp sigmoid colon. The specimen consists of one irregular fragment of light soft tissue that measures 0.3 x 0.3 x 0.1 cm. The specimen is totally submitted in one cassette. B - Received in fixative is one container labeled with the patient's name and designated descending colon polyp. The specimen consists of two irregular fragments of light soft tissue that in aggregate measure 0.4 x 0.2 x 0.1 cm. The specimen is totally submitted in one cassette. C - Received in fixative is one container labeled with the patient's name and designated cecum biopsy. The specimen consists of two irregular fragments of light soft tissue that in aggregate measure 0.6 x 0.3 x 0.1 cm. The specimen is totally submitted in one cassette. D - Received in fixative is one container labeled with the patient's name and designated random colon biopsy. The specimen consists of multiple irregular fragments of light soft tissue that in aggregate measure 1.5 x 0.3 x 0.1 cm. The specimen is totally submitted in one cassette. / SJ:rg 04/29/2022 TC:1 CPT: 44774 x4
--- NOTE | 2022-04-29 06:36 | PCM.HP.BLA ---
History and Physical Date of Admission: 04/29/22 TRACE KHAN, is a 81 F who presents to the office today for 3 month f/u ulcerative colitis. Accompanied by daughter. Continues to do well on sulfasalazine and folic acid. BMs 1-2x per day, formed. No abd pain. No nausea or vomiting. Gets a low back pain before having BM but not significant; thinks she sits too much. Weight has been stable. Family helps with meals and they get Meals on Wheels. Saw Dr Ho yesterday for iron deficiency anemia, stable. 10/27/21 Hgb 11.3, iron 41 Trace Vega established with this clinic 2 with referral from hematology for further evaluation of her anemia. Onset 2017 following hip fracture s/p hip replacement causing DVT and PE. [place] filter placed and started on Coumadin with subsequent transition to aspirin which was later stopped. Hematology had concerns for monoclonal suspicious for myeloma, was given a diagnosis of MGUS follow bone marrow biopsy. EGD and colonoscopy performed 05.08.21. EGD found mild Schatzki ring, dilated to 33F with Savary dilator; medium hiatal hernia; duodenitis; diverticulum at cricopharyngeus. Colonoscopy found perianal hemorrhoids; two 1-2mm polyps removed; mucosal ulceration; congested mucosa in terminal ileum; moderate diverticulosis in sigmoid and descending colon without evidence of bleed. Biopsy PD3 positive. 05/08/21 MICROSCOPIC DIAGNOSIS A.? Duodenum, biopsy: ?No significant pathologic change. ?No evidence of duodenitis. ?See comment. B.? Sigmoid colon polyp, biopsy: ?Fragments of tubular adenoma. C.? Transverse colon polyp, biopsy: ?Tubular adenoma. D.? Terminal ileum, biopsy: ?Mild acute enteritis. ?See comment. E.? Colon, random biopsy: ?Acute colitis. ?See comment. F.? Rectum, biopsy: ?Acute colitis. ?See comment. COMMENT A.? Focal pigmented macrophages are seen in the mucosa.? Clinical correlation is suggested. D.? Mild glandular distortion is present.? There is cryptitis and crypt abscesses present.? Fissuring ulcers are not seen and transmural lymphoid aggregates are not identified.? Clinical correlation is suggested. E.? Sections show glandular distortion.? There is cryptitis, crypt abscesses and expansion of lamina propria by chronic inflammatory infiltrates.? Distinct transmural lymphoid aggregates are not identified and no fissuring ulcers are seen.? Clinical correlation is suggested. F.? Sections show mild glandular distortion with cryptitis and crypt abscesses.? Fissuring ulcers and/or transmural lymphoid aggregates are not identified.? Clinical correlation is suggested. ROS Const Constitutional: No fatigue ENT ENT: Positive for difficulty swallowing Gastro GI: Positive for diarrhea and difficulty swallowing; No abdominal pain, belching, bloating, change in bowel habits, change in stool character, coffee ground emesis, constipation, cramping, heartburn, feeling full early, excessive flatus, incontinent of stools, Vomiting blood/hematemesis, Blood in stool, loose stools, Black,tarry stools, nausea/dyspepsia, pain with swallowing, vomiting or other Musc Musculoskeletal: Positive for joint pain, back pain, muscle cramps, numbness, stiffness and Arthritis Skin Skin: No yellowing of the eye or itchy eyes Neuro Neurology: Positive for numbness Psych Psychiatric: No anxiety and No depression Endo Endocrine: No fatigue Aller/Imm Allergy/Immunologic: No itchy eyes Alok/Lymp Hematologic/Lymphatic: Positive for easy bruising; No easy bleeding Exam Const General: cooperative, comfortable and no acute distress Nutritional Appearance: thin Orientation: alert, awake and oriented x3 Other: uses a walker Quality Reporting Tobacco Screening ([facility] 138) Smoking Status: Never smoker Assessment and Plan Assessment and Plan (1) Ulcerative colitis: ?Status:?Acute ?Plan: Doing well, continue sulfasalazine 1 gram BID and folic acid Repeat colonoscopy 04/2022 f/u 3 mos I have examined the patient and the H&P has been reviewed. There are no clinical changes since date of exam.
--- NOTE | 2022-04-29 07:13 | OP.COLON_ITS ---
Patient Name: Deborah Fitch Procedure Date: 04/29/2022 6:29 AM Date of : 1940 Age: 82 Procedure: Colonoscopy Indications: Chronic ulcerative pancolitis Providers: Angel Carlos DO Referring MD: Jennifer Louise MD Medicines: Monitored Anesthesia Care Patient Profile: This is an 82 year old female. Refer to note in patient chart for documentation of history and physical. Last Colonoscopy: 1 year ago. Complications: No immediate complications. Procedure: Pre-Anesthesia Assessment: - Prior to the procedure, a History and Physical was performed, and patient medications and allergies were reviewed. The risks and benefits of the procedure and the sedation options and risks were discussed with the patient. All questions were answered and informed consent was obtained. Patient identification and proposed procedure were verified by the physician. Mental Status Examination: alert and oriented. Airway Examination: normal oropharyngeal airway and neck mobility. Respiratory Examination: clear to auscultation. CV Examination: normal. Prophylactic Antibiotics: The patient does not require prophylactic antibiotics. Prior Anticoagulants: The patient has taken no previous anticoagulant or antiplatelet agents. ASA Grade Assessment: II - A patient with mild systemic disease. After reviewing the risks and benefits, the patient was deemed in satisfactory condition to undergo the procedure. The anesthesia plan was to use monitored anesthesia care (MAC). Immediately prior to administration of medications, the patient was re-assessed for adequacy to receive sedatives. The heart rate, respiratory rate, oxygen saturations, blood pressure, adequacy of pulmonary ventilation, and response to care were monitored throughout the procedure. The physical status of the patient was re-assessed after the procedure. After I obtained informed consent, the scope was passed under direct vision. Throughout the procedure, the patient's blood pressure, pulse, and oxygen saturations were monitored continuously. The colonoscope was introduced through the anus and advanced to the cecum, identified by appendiceal orifice and ileocecal valve. The colonoscopy was performed without difficulty. The patient tolerated the procedure well. The quality of the bowel preparation was good. Scope In: 6:41:49 AM Scope Withdrawal Time 0 hours 8 minutes 41 seconds Scope Out: 7:04:28 AM Total Procedure Duration Time 0 hours 22 minutes 39 seconds Findings: The perianal and digital rectal examinations were normal. Two sessile polyps were found in the sigmoid colon and descending colon. The polyps were 1 to 2 mm in size. These polyps were removed with a cold snare. Resection and retrieval were complete. Verification of patient identification for the specimen was done. Estimated blood loss was minimal. Patchy mild inflammation characterized by congestion (edema) and erythema was found at the hepatic flexure, in the ascending colon and in the cecum. Biopsies were taken with a cold forceps for histology. Verification of patient identification for the specimen was done. Estimated blood loss was minimal. A few small and large-mouthed diverticula were found in the recto-sigmoid colon and sigmoid colon. Non-bleeding internal hemorrhoids were found during retroflexion. The hemorrhoids were Grade II (internal hemorrhoids that prolapse but reduce spontaneously). Impression: - Two 1 to 2 mm polyps in the sigmoid colon and in the descending colon, removed with a cold snare. Resected and retrieved. - Patchy mild inflammation was found at the hepatic flexure, in the ascending colon and in the cecum secondary to colitis. Biopsied. - Diverticulosis in the recto-sigmoid colon and in the sigmoid colon. - Non-bleeding internal hemorrhoids. Recommendation: - No repeat colonoscopy due to age. - Continue present medications. Procedure Code(s): --- Professional --- 40212, Colonoscopy, flexible; with removal of tumor(s), polyp(s), or other lesion(s) by snare technique 32540, 59, Colonoscopy, flexible; with biopsy, single or multiple CPT copyright 2017 [employer]. All rights reserved. The codes documented in this report are preliminary and upon radius grinder review may be revised to meet current compliance requirements. Angel Carlos DO 04/29/2022 7:13:11 AM This report has been signed electronically. Number of Addenda: 0 Note Initiated On: 04/29/2022 6:29 AM
--- NOTE | 2022-04-29 07:14 | OP.CCLET_ITS ---
04/29/2022 Jennifer Louise MD [address] [address] [place] [address] Re : Colonoscopy procedure for Deborah Fitch Dear Dr. Louise This procedure was performed on Friday, April 29, 2022. My impressions and recommendations are as follows: Impressions : - Two 1 to 2 mm polyps in the sigmoid colon and in the descending colon, removed with a cold snare. Resected and retrieved. - Patchy mild inflammation was found at the hepatic flexure, in the ascending colon and in the cecum secondary to colitis. Biopsied. - Diverticulosis in the recto-sigmoid colon and in the sigmoid colon. - Non-bleeding internal hemorrhoids. Recommendations : - No repeat colonoscopy due to age. - Continue present medications. My findings are described in the full procedure note, which is enclosed. If I can be of further assistance, please feel free to contact me at . Sincerely, Angel Carlos, 04/29/2022 7:13:11 AM This report has been signed electronically.
== END 2022-04-29 08:11 | disposition home or self-care (01) ==
LOC: EN 05:20 → AC 05:20
PROVIDERS: PCP Internal Medicine; Referring Provider Internal Medicine; Visit Provider Internal Medicine Gastroenterology
PROC: 0DJD8ZZ Inspection of Lower Intestinal Tract, Via Natural or Artificial Opening Endoscopic (ICD-10-PCS; CPT 45378; principal; 2022-04-29 06:25)
DX: K51.00 Ulcerative (chronic) pancolitis without complications (principal); D12.6 Benign neoplasm of colon, unspecified; K57.30 Diverticulosis of large intestine without perforation or abscess without bleeding; K64.1 Second degree hemorrhoids; I10 Essential (primary) hypertension; E03.9 Hypothyroidism, unspecified; Z79.899 Other long term (current) drug therapy; Z79.890 Hormone replacement therapy
CPT/HCPCS: 45380; 45385; 88305; J7120; J2405

== ENCOUNTER → 2022-06-11 | Outpatient (CLI) | payer MEDICARE, SELFPAY ==
--- NOTE | 2022-06-11 10:08 | BD_ITS ---
STUDY: DUAL ENERGY X-RAY ABSORPTIOMETRY / DXA REASON FOR EXAM: Female, 82 years old. Post menopausal TECHNIQUE: Bone Mineral Density (BMD) measurements of lumbar spine and left hip were obtained. COMPARISON: None. FINDINGS: Lumbar Spine (L1-L4): g/cm2 (0.724) / T-score (-3.4) / Z-score (-0.4) Findings are suggestive of osteoporosis with a high fracture risk. Left Femur Total: g/cm2 (0.563) / T-score (-3.1) / Z-score (-0.8) Left Femoral Neck: g/cm2 (0.598) / T-score (-2.3) / Z-score (0.2) BD/Dexa Bone Density Study IMPRESSION: The patient is considered osteoporotic as outlined below according to World Conor Organization (WHO) criteria with a high fracture risk. Reference Information: The T-score is the number of standard deviations above or below the standard which is normal for young adults at their peak bone mineral density. The World Health Organization (WHO) interprets the T-scores as follows: Above -1 Normal bone density Between -1 and -2.5 Osteopenia Equal to / or below -2.5 Osteoporosis As a practical clinical guideline, osteopenia may be graded as follows: Mild -1 through -1.5 Moderate -1.6 through -2.0 Severe -2.1 through -2.4 The Z-score is the number of standard deviations above or below age-matched controls. A Z-score of less than -1.5 would be considered abnormal. References: 1. NIH Osteoporosis and Related Bone Diseases www osteo.org 2. International Society for Clinical Densitometry www iscd.org 3. National Osteoporosis Foundation www nof.org Electronically Signed: Xavier Bella MD at 9:21 EDT ,
== END | disposition home or self-care (01) ==
PROVIDERS: PCP Internal Medicine; Referring Provider Internal Medicine; Visit Provider Internal Medicine
DX: Z78.0 Asymptomatic menopausal state (principal)
CPT/HCPCS: 77080

== ENCOUNTER → 2022-06-17 | Outpatient (CLI) | payer MEDICARE, SELFPAY ==
[2022-06-17 12:57] LABS: Vitamin D,25 Hydroxy 76.6 ng/mL
[2022-06-17 13:31] LABS: Anion Gap 6 (5-15); BUN 27 mg/dL (7-18); BUN/Creat Ratio 41.5 RATIO (10-20); Calcium,Total 9.4 mg/dL (8.5-10.1); Chloride 106 mmol/L (98-107); Creatinine, Serum 0.65 mg/dL (0.55-1.02); EST Glomerular Filtration Rate 92 mL/min (>60); Est Glom Filt Rate - Afr Amer 111 mL/min (>60); Glucose 90 mg/dL (74-106); Potassium 3.9 mmol/L (3.5-5.1); Sodium Level 143 mmol/L (136-145)
== END | disposition home or self-care (01) ==
LOC: BIMLAB 11:27
PROVIDERS: PCP Internal Medicine; Referring Provider Internal Medicine; Visit Provider Internal Medicine
DX: M81.0 Age-related osteoporosis without current pathological fracture (principal); E03.9 Hypothyroidism, unspecified
CPT/HCPCS: 36415; 80048; 82306; 84443